=== PATIENT | female | born 1955 | race Caucasian/White ===

== ENCOUNTER 2019-02-23 09:11 | Outpatient (CLI) | payer OTHER, SELFPAY ==
[2019-02-23 09:46] LABS: Abs Immature Grans 0.01 k/cumm (0.0-0.09); Absolute Basophil Count 0.03 k/cumm (0.0-0.2); Absolute Lymphocyte Count 2.43 k/cumm (1.2-3.4); Absolute Monocyte Count 0.56 k/cumm (0.11-0.7); Basophils % 0.4; Eosinophils % 2.8; HCT 40.1 % (36.0-46.0); HGB 13.5 g/dL (12.0-15.5); Immature Grans % 0.1; Lymphocytes % 34.1; Mean Corp. HGB Concentration 33.7 g/dL (32.0-36.0); Mean Corpuscular Volume 86.2 fL (80-95); Mean Platelet Volume 9.8 fL (8.0-11.0); Monocytes % 7.9; Neutrophils % 54.7; Platelet Count 417 x1000/uL (130-400); RBC 4.65 m/cumm (4.00-5.20); RBC Distribution Width 12.8 % (11.7-14.6); White Blood Cell Count 7.13 k/cumm (4.4-10.8)
[2019-02-23 10:39] LABS: TSH (W/Ref FT4) 1.72 uIU/mL (0.358-3.74)
[2019-02-23 13:17] LABS: ALT 28 U/L (12-78); AST 22 U/L (15-37); Albumin 3.8 g/dL (3.4-5.0); Alkaline Phosphatase 127 U/L (46-116); Anion Gap 12.8 mmol/L (3-11); BUN 13 mg/dL (7-18); Bilirubin, Total 0.5 mg/dL (0.2-1.0); CO2 24.2 mmol/L (21.0-32.0); CREATININE 0.83 mg/dL (0.55-1.02); Calcium 8.9 mg/dL (8.5-10.1); Chloride 104 mmol/L (98-107); Glucose 103 mg/dL (70-100); Potassium 4.1 mmol/L (3.5-5.1); Sodium 141 mmol/L (136-145); Total Protein 7.6 g/dL (6.4-8.2)
[2019-02-24 11:09] LABS: Lyme Ab w Rflx to Lyme Confirm Negative
== END 2019-02-23 09:31 ==
PROVIDERS: PCP Nurse Practitioner Family; Referring Provider Nurse Practitioner Family; Visit Provider Nurse Practitioner Family
DX: R06.02 Shortness of breath (principal); R63.0 Anorexia; R53.83 Other fatigue; M79.10 Myalgia, unspecified site; Z87.891 Personal history of nicotine dependence; Z00.00 Encounter for general adult medical examination without abnormal findings
CPT/HCPCS: 36415; 80053; 84443; 85025; 86618

== ENCOUNTER 2019-02-23 13:54 | Outpatient (REF) | payer OTHER, SELFPAY | END 2019-02-23 14:14 | LOC: NCHCN 13:54 | PROVIDERS: PCP Nurse Practitioner Family; Visit Provider Nurse Practitioner Family | DX: R69 Illness, unspecified (principal) ==

== ENCOUNTER 2019-03-22 00:53 | Outpatient (CLI) | payer OTHER, SELFPAY ==
--- NOTE | 2019-03-22 16:03 | DI.MAMMO_ITS ---
SYMPTOM/DIAGNOSIS: PREVENTATIVE CARE 00.00 BREAST CYST BENIGN N60.09 SCREENING Z12.31 BILATERAL SCREENING MAMMOGRAM: Mammograms were interpreted according to the usual protocol including computer analysis with CAD system, tomosynthesis and C view imaging. Comparison is made with exams from 2015 through 2018. The breasts are composed of scattered fibroglandular densities, breast density category B. No suspicious masses or suspicious microcalcifications are seen. There has been no significant change. IMPRESSION: Category 1, negative mammogram. Yearly screening mammography is recommended. Breast density category B MQSA ASSESSMENT OF FINDINGS: Negative. Category 1. Patient will receive a letter notifying them of these results. BI-RADS category B. There are scattered areas of fibroglandular density.
== END 2019-03-22 01:13 ==
PROVIDERS: PCP Nurse Practitioner Family; Visit Provider Nurse Practitioner Family
DX: Z12.31 Encounter for screening mammogram for malignant neoplasm of breast (principal); N60.09 Solitary cyst of unspecified breast; N64.89 Other specified disorders of breast
CPT/HCPCS: 77063; 77067

== ENCOUNTER 2019-07-31 01:54 | Outpatient (CLI) | payer BC, SELFPAY ==
[2019-07-31] MEDS: Inhaler, Assist Device 1 EACH MC (13:57)
[2019-07-31] MEDS: Albuterol HFA 18 GM 200 PUFF INH IH (13:58)
--- NOTE | 2019-08-03 11:03 | PFT_ITS ---
DATE OF SERVICE: JULY 31, 2019 REQUESTING PROVIDER: ANANDA WHITE SPIROMETRY: SHOWS NO EVIDENCE OF OBSTRUCTIVE AIRWAYS DISEASE. NO BRONCHODILATOR RESPONSE. LUNG VOLUMES: SHOW NO EVIDENCE OF RESTRICTION. DIFFUSION CAPACITY: NORMAL. AIRWAYS RESISTANCE: NORMAL. IMPRESSION: NORMAL PULMONARY FUNCTION STUDY. CLINICAL CORRELATION IS RECOMMENDED.
== END 2019-07-31 02:14 ==
PROVIDERS: PCP Nurse Practitioner Family; Visit Provider Nurse Practitioner Family
DX: R06.09 Other forms of dyspnea (principal); Z87.891 Personal history of nicotine dependence; Z77.22 Contact with and (suspected) exposure to environmental tobacco smoke (acute) (chronic)
CPT/HCPCS: 94060; 94150; 94726; 94729

== ENCOUNTER 2020-03-18 02:21 | Outpatient (CLI) | payer BC, SELFPAY ==
[2020-03-18 08:44] LABS: Abs Immature Grans 0.01 k/cumm (0.0-0.09); Absolute Basophil Count 0.03 k/cumm (0.0-0.2); Absolute Eosinophil Count 0.22 k/cumm (0.0-0.7); Absolute Lymphocyte Count 2.34 k/cumm (1.2-3.4); Basophils % 0.5; Eosinophils % 3.4; HCT 40.8 % (36.0-46.0); HGB 13.6 g/dL (12.0-15.5); Immature Grans % 0.2 %; Mean Corp. HGB Concentration 33.3 g/dL (32.0-36.0); Mean Corpuscular Hemoglobin 28.8 pg (27.0-33.0); Mean Corpuscular Volume 86.4 fL (80-95); Mean Platelet Volume 9.9 fL (8.0-11.0); Monocytes % 7.7; Neutrophils % 52.2; Platelet Count 392 x1000/uL (130-400); RBC 4.72 m/cumm (4.00-5.20); RBC Distribution Width 12.7 % (11.7-14.6)
== END 2020-03-18 02:41 ==
LOC: LBO 04-12 15:15 → NCHCO 04-24 15:10
PROVIDERS: PCP Nurse Practitioner Family; Visit Provider Family Medicine
DX: R63.0 Anorexia (principal); R06.02 Shortness of breath; R53.83 Other fatigue; Z91.89 Other specified personal risk factors, not elsewhere classified; M79.10 Myalgia, unspecified site
CPT/HCPCS: 36415; 84443; 85025; 86618

== ENCOUNTER 2020-08-27 01:04 | Outpatient (CLI) | payer BC, SELFPAY ==
--- NOTE | 2020-08-27 | DI.MAMMO_ITS ---
EXAM: MAMMO SCREENING CLINICAL HISTORY: SCREENING, Z00.00,PREVENTATIVE HEALTH CARE TECHNIQUE: Mammograms were interpreted according to the usual protocol including computer analysis w [employer] CAD system, tomosynthesis and C-view imaging. COMPARISON: FINDINGS: The breasts are of moderate density fairly symmetrical distribution fibroglandular tissue. No domina nt mass or clumped microcalcification is identified in either breast. The current examination is com pared with multiple previous studies including February 2019, there is question of increased prominence o f a focal area of asymmetric density projected in the central superior portion of the right breast on MLO view only in comparison with the prior studies. This lies about 6 cm from the nipple. Addition al mammographic views of this area are requested to include an MLO spot compression view of the right breast. No other significant change seen. IMPRESSION: Additional mammographic views of the right breast requested as described above, right breast ultrasou nd recommended as well. BI-RADS Category 0 - Assessment Incomplete: Need additional imaging evaluation Breast Density - Category B - Scattered areas of fibroglandular density
== END 2020-08-27 01:24 ==
PROVIDERS: PCP Nurse Practitioner Family; Visit Provider Family Medicine
DX: Z12.31 Encounter for screening mammogram for malignant neoplasm of breast (principal); R92.8 Other abnormal and inconclusive findings on diagnostic imaging of breast; Z00.00 Encounter for general adult medical examination without abnormal findings
CPT/HCPCS: 77063; 77067

== ENCOUNTER 2020-09-09 01:09 | Outpatient (CLI) | payer BC, SELFPAY ==
--- NOTE | 2020-09-09 | DI.MAMMO_ITS ---
EXAM: MAMMO SCREEN CALL BACK UNI CLINICAL HISTORY: F/U MAMMMO, ?INCREASED ASYMMETRIC DENSITY TECHNIQUE: Spot compression views and tomographic imaging were performed. COMPARISON: 2013 through 27 August 2020 FINDINGS: The breasts are composed of scattered fibroglandular densities, Breast Density category B. No suspicious masses or suspicious microcalcifications are seen. No persistent abnormality is seen on the additional views performed. The findings are consistent wit h overlying fibroglandular tissue. There has been no significant change from prior exams. IMPRESSION: BI-RADS Category 1, Negative Yearly screening mammography is recommended. Please see separate ultrasound report. Breast Density - Category B, scattered fibroglandular densities.
--- NOTE | 2020-09-09 | DI.US_ITS ---
EXAM: US BREAST RT LIMITED CLINICAL HISTORY: F/U MAMMO, ? INCREASED ASYMMETRIC DENSITY. TECHNIQUE: Limited ultrasound of the right breast was performed. COMPARISON: Prior mammograms were reviewed. Today's additional diagnostic mammogram was also reviewe d FINDINGS: The upper half of the breast was scanned. No evidence of solid or significant cystic lesion evident. IMPRESSION: Negative right breast ultrasound. Appropriate follow-up is to keep this patient yearly mammogram schedule, with earlier imaging if a se lf detected breast change is noted.. BI-RADS Category 1 - Negative Breast Density - Category B - Scattered areas of fibroglandular density Breast density Category C or D implies that the patient has dense breast tissue. Dense breast tissue can make it harder to find cancer on a mammogram. Dense breast tissue is also associated with an incr eased risk of breast cancer. This information about the result of the mammogram report was provided to the patient to raise their awareness. Use this report when you speak with the patient about their risks for breast cancer, which includes their family history. At that time, you may recommend additional screening tests (Ultrasoun d or MRI) as these tests may add significant information. A negative radiographic report should not delay biopsy if a dominant or clinically suspicious mass is present. Up to ten percent of cancers are not identified on mammography. A negative report may reinforce clinical impression. Adenosis and dense breasts may obscure an underlying neoplasm. False positive reports average 6 to 10%. Patient will receive a letter notifying them of these results.
== END 2020-09-09 01:29 ==
PROVIDERS: PCP Nurse Practitioner Family; Visit Provider Family Medicine
DX: Z12.31 Encounter for screening mammogram for malignant neoplasm of breast (principal); R92.8 Other abnormal and inconclusive findings on diagnostic imaging of breast; N64.59 Other signs and symptoms in breast
CPT/HCPCS: 76642; 77063; 77067

== ENCOUNTER 2021-03-12 08:19 | Outpatient (REF) | payer BC, SELFPAY ==
[2021-03-12 20:19] LABS: Anion Gap 10.1 mmol/L (3-11); BUN 13 mg/dL (7-18); CO2 24.9 mmol/L (21.0-32.0); CREATININE 0.8 mg/dL (0.55-1.02); Calcium 9.2 mg/dL (8.5-10.1); Chloride 105 mmol/L (98-107); Glucose 94 mg/dL (74-106); Potassium 4.7 mmol/L (3.5-5.1); Sodium 140 mmol/L (136-145)
[2021-03-12 21:17] LABS: Calculated LDL 150 mg/dL (<100); Cholesterol 251 mg/dL (<200); HDL Cholesterol 53 mg/dL (40-60); Triglyceride 243 mg/dL (<150); Vitamin B12 539 pg/mL (193-986)
== END 2021-03-12 08:20 | disposition home or self-care (01) ==
LOC: NCHCN 08:19
PROVIDERS: PCP Nurse Practitioner Family; Visit Provider Family Medicine
DX: Z00.00 Encounter for general adult medical examination without abnormal findings (principal); I10 Essential (primary) hypertension; Z13.220 Encounter for screening for lipoid disorders; Z13.1 Encounter for screening for diabetes mellitus
CPT/HCPCS: 80048; 80061; 82607; 83036

== ENCOUNTER 2022-04-21 16:42 | Outpatient (REF) | payer MEDICAID, SELFPAY ==
[2022-04-21 18:51] LABS: ESR 28 mm/hr (0-30)
[2022-04-21 19:28] LABS: Anion Gap 8.9 mmol/L (3-11); BUN 18 mg/dL (7-18); CO2 26.1 mmol/L (21.0-32.0); Calcium 8.6 mg/dL (8.5-10.1); Chloride 107 mmol/L (98-107); Estimated GFR 55.82 (mL/min/1.73m2); Glucose 152 mg/dL (74-106); Potassium 3.9 mmol/L (3.5-5.1); Sodium 142 mmol/L (136-145); TSH (W/Ref FT4) 1.18 uIU/mL (0.36-3.74)
== END 2022-04-21 16:43 | disposition home or self-care (01) ==
LOC: NCHCN 16:42
PROVIDERS: PCP Nurse Practitioner Family; Visit Provider Family Medicine
DX: M79.10 Myalgia, unspecified site (principal); I10 Essential (primary) hypertension; R06.09 Other forms of dyspnea
CPT/HCPCS: 80048; 85652; 84443

== ENCOUNTER → 2022-05-06 02:41 | Outpatient (CLI) | payer MEDICAID, SELFPAY ==
--- NOTE | 2022-05-06 12:52 | DI.MAMMO_ITS ---
Exam(s) MAMMO SCREENING EXAM: MAMMO SCREENING CLINICAL HISTORY: SCREENING MAMMO Z12.39 TECHNIQUE: Bilateral full field digital CC and MLO mammographic images were obtained with 3D tomosyn thesis and utilizing computer aided detection (CAD). COMPARISON: Available for comparison. FINDINGS: Masses/Architectural Distortion: There is a new 9 mm nodule in the upper inner quadrant of the left b reast. Microcalcifications: No suspicious pleomorphic-type are seen. Skin Thickening/Nipple Retraction: None. IMPRESSION: 1. New 9 mm nodule in the upper inner quadrant of the left breast. 2. Further evaluation with spot compression view and are left breast ultrasound is recommended. BI-RADS Category 0 - Assessment Incomplete: Need additional imaging evaluation Breast Density - Category B - Scattered areas of fibroglandular density Breast density category C or D implies that the patient has dense breast tissue. Dense breast tissue is very common and is not abnormal but dense breast tissue can make it harder to find cancer on a ma mmogram. Also, dense breast tissue may increase their breast cancer risk. This information about the result of the mammogram report was provided to the patient to raise their awareness. Use this report when you speak with the patient about their risks for breast cancer, which includes their family hist ory. At that time, you may recommend for more screening tests (Ultrasound or MRI) as they might be us eful based on their risk. A negative radiographic report should not delay biopsy if a dominant or clinically suspicious mass is present. Up to ten percent of cancers are not identified on mammography. A negative report may reinforce clinical impression. Adenosis and dense breasts may obscure an underlying neoplasm. False positive reports average 6 to 10%. Patient will receive a letter notifying them of these results.
--- NOTE | 2022-05-06 12:54 | DI.RAD_ITS ---
Exam(s) XR CHEST 2V PA LATERAL EXAM: XR CHEST 2V PA LATERAL CLINICAL HISTORY: SOB R06.09 FARFAN COUGH BROTHER WITH SARCOIDOSIS TECHNIQUE: 2D digital imaging was performed of the chest. Two images were obtained. PA and lateral views were obtained. COMPARISON: No exams were available for comparison FINDINGS: MEDIASTINUM: Normal. HEART: Normal. PULMONARY VASCULATURE: Normal. LUNGS: Clear. PLEURAL SPACE: No pleural effusion or pneumothorax. BONE:Within normal limits for the patient's age. OTHER FINDINGS:Normal. IMPRESSION: No acute pulmonary findings. DATA REPOSITORY: RADIATION DOSE DELIVERED:
--- NOTE | 2022-05-06 12:54 | DI.RAD_ITS ---
Exam(s) XR HIP LT COMPLETE AP PELVIS EXAM: XR HIP LT COMPLETE AP PELVIS CLINICAL HISTORY: LEFT HIP PAIN M25.552 LIMITED INT/EXT ROTATION. TECHNIQUE: 2D digital imaging was performed of the left hip. Three views were obtained. AP pelvis and lateral left hip views were obtained. COMPARISON: No exams were available for comparison FINDINGS: BONES: No acute fracture is present. No bony destructive lesion is seen. JOINTS: No dislocation present. There are marked degenerative changes of the left hip with joint spac e narrowing, subchondral sclerosis and cysts and mild periarticular spurring. Moderate degenerative changes are seen in the right hip with joint space narrowing and periarticular spurring. SOFT TISSUE: Normal. IMPRESSION: Marked osteoarthritis of the left hip. DATA REPOSITORY: RADIATION DOSE DELIVERED:
== END ==
PROVIDERS: PCP Nurse Practitioner Family; Visit Provider Family Medicine
DX: R06.09 Other forms of dyspnea (principal); M25.552 Pain in left hip; Z12.31 Encounter for screening mammogram for malignant neoplasm of breast; R92.8 Other abnormal and inconclusive findings on diagnostic imaging of breast; R06.02 Shortness of breath; M16.12 Unilateral primary osteoarthritis, left hip
CPT/HCPCS: 77063; 77067; 71046; 73502

== ENCOUNTER → 2022-05-11 01:36 | Outpatient (CLI) | payer MEDICAID, SELFPAY ==
--- NOTE | 2022-05-11 | DI.MAMMO_ITS ---
Exam(s) MG MAMMO SCREEN CALL BACK UNI US BREAST LT COMPLETE EXAM: MG MAMMO SCREEN CALL BACK UNI -LEFT AND COMPLETE LEFT BREAST ULTRASOUND CLINICAL HISTORY: F/U MAMMO, NEW 9 MM NODULE UPPER INNER QUADRANT LT BREAST. TECHNIQUE: Unilateral spot mammographic images obtained with 3D tomosynthesisand utilizing computer aided detection (CAD). . Complete LEFT breast Ultrasound was also performed, including all 4 quadrants, the retroareolar regio n, and the ipsilateral axilla. COMPARISON: Prior mammograms were reviewed. This additional imaging was performed due to findings described on the recent screening mammogram of 05/06/2022. FINDINGS: DIAGNOSTIC LEFT BREAST MAMMOGRAM: Additional mammographic views performed todaydoes not dissipate this nodule. We therefore proceeded with ultrasound. COMPLETE LEFT BREAST ULTRASOUND: Ultrasound performed today reveals a 3-4 millimeter microcyst at the 3 o'clock position. At the 9-10 o'clock position there is a 5 x 3 millimeter microcyst. This most probably corresponds t o the finding on the mammogram.. There are no other focal ultrasound findings in all 4 quadrants. N o solid lesions evident. Scanning of the left axilla is negative for adenopathy IMPRESSION: Benign-appearing findings. The nodule seen on the mammogram appears to correspond to a [address] microcyst on ultrasound (9-10 o'clock position). Appropriate follow-up as discussed by myself with the patient today is repeat left breast imaging in 6 months to ensure stability.. The patient was informed of these findings and recommendations by myself prior to leaving the [facility] ent today. BI-RADS Category 3 - 6 month - Probably Benign Finding: Recommend follow-up mammography in 6 months Breast Density - Category B - Scattered areas of fibroglandular density Breast density Category C or D implies that the patient has dense breast tissue. Dense breast tissue can make it harder to find cancer on a mammogram. Dense breast tissue is also associated with an incr eased risk of breast cancer. This information about the result of the mammogram report was provided to the patient to raise their awareness. Use this report when you speak with the patient about their risks for breast cancer, which includes their family history. At that time, you may recommend additional screening tests (Ultrasoun d or MRI) as these tests may add significant information. A negative radiographic report should not delay biopsy if a dominant or clinically suspicious mass is present. Up to ten percent of cancers are not identified on mammography. A negative report may reinforce clinical impression. Adenosis and dense breasts may obscure an underlying neoplasm. False positive reports average 6 to 10%. Patient will receive a letter notifying them of these results.
== END ==
PROVIDERS: PCP Nurse Practitioner Family; Visit Provider Family Medicine
DX: Z12.31 Encounter for screening mammogram for malignant neoplasm of breast (principal); R92.8 Other abnormal and inconclusive findings on diagnostic imaging of breast; N60.12 Diffuse cystic mastopathy of left breast
CPT/HCPCS: 76642; 77063; 77067

== ENCOUNTER → 2022-05-21 02:20 | Outpatient (CLI) | payer MEDICAID, SELFPAY ==
--- NOTE | 2022-05-21 09:00 | ETT_ITS ---
APPROVED REPORT Exam: Exercise Treadmill Patient Location: Out-Patient Room/Bed: Stress Nurse: Fallon Paige RN Ordering Provider:OBEY TIERNEY, Contact Number: [phone] BMI: 29.75 Baseline Rhythm: Sinus Rhythm Comment: Flattened T-waves in V1 Indications: Exertional shortness of breath. Medical History Medical History: HTN. HLD. GERD. Elevated BMI. Allergic rhinitis. Recurrent UTI. Cardiac Medications: Losartan Allergies: Meperidine Cardiac Risk Factors: HTN. HLD. Former smoker. Obesity. Previous Cardiac Procedures: None Pretest Chest Pain Characteristics: None. Exercise History: Sedentary Physical Disabilities: Hips Lung Sounds: Clear to auscultation Heart Sounds: Regular Stress Test Details Test: Exercise stress testing was performed using a Man protocol. Rest Stress HR Resting HR Supine: 64 bpm Max Heart Rate (APMHR): 156 bpm Resting HR Standin bpm Target HR (85% APMHR): 132 bpm Max HR Achieved: 160 bpm % of APMHR: 102 Recovery HR: 88 bpm HR response to stress: Normal HR response to stress BP Resting BP Supine: 178/84 mmHg Resting BP Standin/78 mmHg Max BP: 190/68 mmHg Recovery BP: 140/78 mmHg BP response to stress: Normal blood pressure response to stress. Comment: Pt took her Losartan this am. ECG Resting ECG: Sinus Rhythm Ectopy: None Stress ECG: Sinus Tachycardia ST Change: No significant ST segment changes noted Arrhythmia: VPC's Recovery ECG: Sinus Rhythm Recovery ST Change: No significant ST segment changes noted Recovery Arrhythmia: None Clinical Reason for Termination: Fatigue, Dyspnea Stress Symptoms: Dyspnea, General Fatigue, arm fatigue Exercise duration: 7 min5 sec Highest Stage Reached: Stage 3: 3.4 mph at 14% grade. Exercise capacity: 8.72 METs Scale: Sedentary Angina Score: 64 Rate Pressure Product: [id number] Stress ECG Conclusion 1. Resting electrocardiogram showed poor R wave progression 2. Patient exercised on the Man protocol and completed a workload of 8.72 METS, limited by fatigue and shortness of breath 3. Normal heart rate and blood pressure response to exercise. The patient achieved greater than 100% of predicted heart rate for age 4. There was no electrocardiographic evidence of myocardial ischemia 5. Isolated PVCs were seen Stress Test Summary STAGE Time (mins) Speed (mph) Grade (%) HR BP SpO2 SYMPTOMS METS Supine 64 178/84 97 Standing 74 162/78 1 3 1.7 10 135 170/80 4.5 2 6 2.5 12 145 184/78 7 1 min recovery 125 190/68 96 3 min recovery 92 170/88 6 min recovery 88 140/78
== END ==
PROVIDERS: PCP Family Medicine; Visit Provider Family Medicine
DX: R06.02 Shortness of breath (principal)
CPT/HCPCS: 93017

== ENCOUNTER 2022-06-09 15:43 | Outpatient (REF) | payer MEDICAID, SELFPAY ==
[2022-06-09 15:02] LABS: Calculated LDL 122 mg/dL (<100); Cholesterol 202 mg/dL (<200); HDL Cholesterol 61 mg/dL (40-60); Triglyceride 95 mg/dL (<150)
== END 2022-06-09 15:44 | disposition home or self-care (01) ==
LOC: NCHCN 15:43
PROVIDERS: PCP Family Medicine; Visit Provider Family Medicine
DX: E78.5 Hyperlipidemia, unspecified (principal)
CPT/HCPCS: 80061

== ENCOUNTER 2022-06-25 04:06 | Outpatient (CLI) | payer MEDICAID, SELFPAY ==
[2022-06-25] MEDS: Albuterol HFA 18 GM 200 PUFF INH IH (14:12)
[2022-06-25] MEDS: Inhaler, Assist Device 1 EACH MC (14:12)
--- NOTE | 2022-06-26 16:59 | W.PFT ---
Date of service: 06/25/22 Time of Service: 13:03 Pulmonary Function Test Result Requesting Provider Michele Royal Indications: FARFAN Interpretation Spirometry: There is no airflow limitation. There is no bronchodilator response. Lung Volumes: Normal lung volumes. Diffusion Capacity: Normal diffusion Airway Pressure: Normal airways resistance. Impression Normal pulmonary function testing Note: When compared to 07/31/19, there has been a decreased in FVC, TLC and diffusion that is unexplained by aging alone. Clinical Correlation therefore is recommended.
== END 2022-06-25 04:07 | disposition home or self-care (01) ==
LOC: RT 04:06
PROVIDERS: PCP Family Medicine; Visit Provider Family Medicine
DX: R06.02 Shortness of breath (principal); R06.09 Other forms of dyspnea
CPT/HCPCS: 94060; 94726; 94729

== ENCOUNTER 2022-09-03 01:15 | Outpatient (CLI) | payer MEDICARE, MEDICAID, SELFPAY ==
--- NOTE | 2022-09-03 15:08 | DI.RAD_ITS ---
Exam(s) RF JOINT INJECTION FLUORO GUID EXAM: RF JOINT INJECTION FLUORO GUID CLINICAL HISTORY: L HIP INJ UNDER FLUORO,OA LT HIP, M16.12,PAIN TECHNIQUE: Fluoroscopy provided. Radiologist not present. CONTRAST MATERIAL: None COMPARISON: No exams were available for comparison FINDINGS: Fluoroscopy was provided for Dr. Trinh during left hip injection.. Please refer to the procedure report for complete details. Cumulative Dose: Ka,r=0.667 mGy IMPRESSION: RADIATION DOSE DELIVERED:
[2022-09-03] MEDS: Omnipaque 300 MG/ML 10 ML BTL IJ (15:18)
[2022-09-03] MEDS: methylPREDNISolone ACETATE 80 MG/ML VIAL IM (15:19)
[2022-09-03] MEDS: Bupivacaine 0.5% Pres-Free 10 ML VIAL 5 ML IJ (15:19)
--- NOTE | 2022-09-04 13:45 | W.PROCNOTE ---
Date of service: 09/03/22 Time of Service: 13:50 Procedure Note Date of procedure: 09/03/22 Procedure: Left Hip Injection with Fluoroscopic Guidance Surgeon/Proceduralist/Physician: Miguel Trinh Procedure Diagnosis: Left Hip Osteoarthritis Procedure Indications: Clare has had persistent pain of the LEFT hip and groin. Noninvasive measures have been tried. To serve as both diagnostic and therapeutic, an injection under fluoroscopy was recommended. I had discussed the risks of the procedure and the patient elected to proceed. Procedure Description: Clare was greeted in the flouroscopy room. The correct side was identified and the consent was reviewed with the patient and signed. The patient was then placed in the supine position on the fluoroscopy table. The LEFT hip was then prepped with Chloraprep. The anterolateral injection starting point was identiifed by bony landmarks and fluoroscopy. The skin and soft tissue in the tract of the injection was anesthetized with 1% Lidocaine. A spinal needle was then inserted deep into the hip joint at the level of the lateral femoral neck under fluoroscopic guidance. A small amount of Omnipaque solution was injected to confirm intraarticular placement. Once confirmed, the hip was injected with 5cc of 0.5% Bupivicaine and 80mg of Depo-Medrol. A bandaid was placed on the injection site. The patient tolerated the procedure well and noted improvement in pre-injection pain.
== END 2022-09-03 01:35 ==
PROVIDERS: PCP Family Medicine; Visit Provider Student in an Organized Health Care Education/Training Program
DX: M16.12 Unilateral primary osteoarthritis, left hip (principal); M25.552 Pain in left hip
CPT/HCPCS: 20610; 20611; 77002; J1040

== ENCOUNTER 2022-10-21 17:47 | Outpatient (REF) | payer MEDICARE, MEDICAID, SELFPAY ==
--- NOTE | 2022-10-21 16:00 | PAPFT_PTH ---
PATIENT: Chichi Bravo LOC: [facility] U#:[id number] AGE/SX: 67/F ROOM: RE10/21/[address]: Sumi Caal MD : [id number] BED: DIS: 10/21/2022 SPEC #: [id number] RECD: 10/21/22 18:24 STATUS: CHAVO REQ #: [id number] STEVEN: 10/21/22 16:[address]: Sumi Caal DEPT: [facility] Cytology RECD BY: Maria R Goldberg ENTERED: 10/21/22 18:24 SP TYPE: PAPFT OTHR DR: Michele Royal Tissues: 1 - CX/ENDOCX FOR PAP SMEARS Procedures: PAP THIN PREP/U[facility] Screening HPV DNA PROBE Comments: [id number] (HPV 16 & 18/45)
== END 2022-10-21 17:48 | disposition home or self-care (01) ==
LOC: LBN 17:47
PROVIDERS: PCP Family Medicine; Visit Provider Obstetrics & Gynecology
DX: Z01.411 Encounter for gynecological examination (general) (routine) with abnormal findings (principal); Z11.51 Encounter for screening for human papillomavirus (HPV); R87.810 Cervical high risk human papillomavirus (HPV) DNA test positive
CPT/HCPCS: 88142; 87624

== ENCOUNTER 2022-12-31 00:47 | Outpatient (CLI) | payer MEDICARE, MEDICAID, SELFPAY ==
--- NOTE | 2022-12-31 14:40 | DI.RAD_ITS ---
Exam(s) RF JOINT INJECTION FLUORO GUID EXAM: RF JOINT INJECTION FLUORO GUID CLINICAL HISTORY: LEFT HIP PAIN,INJ UNDER FLUORO,DJD,M16.12 TECHNIQUE: 2D and realtime digital imaging was performed. CONTRAST MATERIAL: Refer to procedure report. COMPARISON: No exams were available for comparison FINDINGS: Fluoroscopy was provided for Dr. Trinh during the performance of a left hip injection. Please re solis to the procedure report for complete details. Ka,r=0.22 mGy IMPRESSION: RADIATION DOSE DELIVERED:
--- NOTE | 2022-12-31 14:53 | W.PROCNOTE ---
Date of service: 12/31/22 Time of Service: 14:30 Procedure Note Date of procedure: 12/31/22 Procedure: Left Hip Injection with Fluoroscopic Guidance Surgeon/Proceduralist/Physician: Miguel Trinh Procedure Diagnosis: Left Hip Osteoarthritis Procedure Indications: Clare has had persistent pain of the LEFT hip and groin. She has had previous injection wtih good relief of symptoms. Given the pain and dysfunction, injection under fluoroscopy was recommended. I had discussed the risks of the procedure and the patient elected to proceed. Procedure Description: Clare was greeted in the flouroscopy room. The correct side was identified and the consent was reviewed with the patient and signed. The patient was then placed in the supine position on the fluoroscopy table. The LEFT hip was then prepped with Chloraprep. The anterolateral injection starting point was identiifed by bony landmarks and fluoroscopy. The skin and soft tissue in the tract of the injection was anesthetized with 1% Lidocaine. A spinal needle was then inserted deep into the hip joint at the level of the lateral femoral neck under fluoroscopic guidance. A small amount of Omnipaque solution was injected to confirm intraarticular placement. Once confirmed, the hip was injected with 5cc of 0.5% Bupivicaine and 80mg of Depo-Medrol. A bandaid was placed on the injection site. The patient tolerated the procedure well and noted improvement in pre-injection pain.
[2022-12-31] MEDS: methylPREDNISolone ACETATE 80 MG/ML VIAL IM (15:22)
[2022-12-31] MEDS: Bupivacaine 0.5% Pres-Free 10 ML VIAL 5 ML IJ (15:23)
[2022-12-31] MEDS: Omnipaque 300 MG/ML 10 ML BTL IJ (15:24)
== END 2022-12-31 01:07 ==
LOC: DI 00:47
PROVIDERS: PCP Family Medicine; Visit Provider Student in an Organized Health Care Education/Training Program
DX: M16.12 Unilateral primary osteoarthritis, left hip (principal)
CPT/HCPCS: 20610; 77002; J1040

== ENCOUNTER 2023-02-04 01:37 | Outpatient (CLI) | payer MEDICARE, MEDICAID, SELFPAY ==
--- NOTE | 2023-02-04 | DI.DEXA_ITS ---
Exam(s) XR DEXA BONE DENSITY W/WO LAMIN EXAM: XR DEXA BONE DENSITY W/WO LAMIN CLINICAL HISTORY: POSTMENOPAUSAL Z78.0 SCREENING FOR OSTEOPOROSIS TECHNIQUE: COMPARISON: No exams were available for comparison FINDINGS: Lateral Spine Image: Unremarkable. No compression deformities identified. Left hip: Total T-Score: -2.1 Total Z-Score: -0.9 T- and Z-scores: Findings are consistent with osteopenia. Lumbar Spine: Total T-Score: -2.3 Total Z-Score: -0.6 T- and Z-scores: Findings are consistent with osteopenia. There is osteoporosis in the L3 vertebral body with a T-score -2.5. IMPRESSION: Osteoporosis in the lumbar spine.
== END 2023-02-04 01:57 ==
LOC: DI 01:39
PROVIDERS: PCP Family Medicine; Visit Provider Family Medicine
DX: Z78.0 Asymptomatic menopausal state (principal); Z13.820 Encounter for screening for osteoporosis; M81.0 Age-related osteoporosis without current pathological fracture
CPT/HCPCS: 77080

== ENCOUNTER 2023-05-12 18:33 | Outpatient (REF) | payer MEDICARE, MEDICAID, SELFPAY ==
[2023-05-12 19:26] LABS: BUN 19 mg/dL (7-18); CREATININE 0.9 mg/dL (0.55-1.02); Calcium 9.1 mg/dL (8.5-10.1); Chloride 105 mmol/L (98-107); Estimated GFR 70.95 (mL/min/1.73m2); Glucose 114 mg/dL (74-106); Potassium 3.9 mmol/L (3.5-5.1); Sodium 139 mmol/L (136-145)
[2023-05-12 20:03] LABS: Hemoglobin A1C 5.8 % (<5.7)
== END 2023-05-12 18:34 | disposition home or self-care (01) ==
LOC: NCHCN 18:33
PROVIDERS: PCP Family Medicine; Visit Provider Family Medicine
DX: R73.03 Prediabetes (principal); I10 Essential (primary) hypertension
CPT/HCPCS: 80048; 83036

== ENCOUNTER → 2023-05-17 02:16 | Outpatient (CLI) | payer MEDICARE, MEDICAID, SELFPAY ==
--- NOTE | 2023-05-17 | DI.MAMMO_ITS ---
Exam(s) MAMMO SCREENING EXAM: MAMMO SCREENING CLINICAL HISTORY: SCREENING EXAM FOR BREAST CANCER Z12.39 BENIGN BREAST CYST N60.09 TECHNIQUE: Mammograms were interpreted according to the usual protocol including computer analysis w [employer] CAD system, tomosynthesis and C-view imaging. COMPARISON: 2013 through 2021 FINDINGS: The breasts are composed of scattered fibroglandular densities, Breast Density category B. No suspicious masses or suspicious microcalcifications are seen. Stable area nodularity in the poste romedial left breast. No skin thickening or abnormal axillary lymph nodes are seen. There has been no significant change from prior exams. IMPRESSION: BI-RADS Cat 2 - Benign Findings. Yearly screening mammography is recommended. Breast Density - Category B, scattered fibroglandular densities. A negative radiographic report should not delay biopsy if a dominant or clinically suspicious mass is present. Up to ten percent of cancers are not identified on mammography. A negative report may reinforce clinical impression. Adenosis and dense breasts may obscure an underlying neoplasm. False positive reports average 6 to 10%. Patient will receive a letter notifying them of these results.
== END ==
PROVIDERS: PCP Family Medicine; Visit Provider Family Medicine
DX: Z12.31 Encounter for screening mammogram for malignant neoplasm of breast (principal); N60.09 Solitary cyst of unspecified breast
CPT/HCPCS: 77063; 77067

== ENCOUNTER 2023-07-19 14:45 | Outpatient (CLI) | payer MEDICARE, MEDICAID, SELFPAY ==
--- NOTE | 2023-07-19 15:00 | DI.RAD_ITS ---
Exam(s) XR PELVIS AP EXAM: XR PELVIS AP CLINICAL HISTORY: BILATERAL HIP PAIN. TECHNIQUE: 2D digital imaging was performed. Single AP view. COMPARISON: CR XR HIP LT COMPLETE AP PELVIS from 05/06/2022 FINDINGS: BONES: No acute fracture is present. No bony destructive lesion is seen. JOINTS: No dislocation present. Severe narrowing of the left hip joint space a [id number] appearanc e. Some flattening of the femoral head. Periarticular spurring and sclerosis. Subchondral cysts. Further worsening from prior. The right hip shows mild degenerative changes. SOFT TISSUE: Normal. IMPRESSION: Severe degenerative changes of the left hip. DATA REPOSITORY: RADIATION DOSE DELIVERED:
== END 2023-07-19 14:46 | disposition home or self-care (01) ==
LOC: DIORS 07-20 08:42
PROVIDERS: PCP Family Medicine; Referring Provider Family Medicine; Visit Provider Student in an Organized Health Care Education/Training Program
DX: M16.12 Unilateral primary osteoarthritis, left hip
CPT/HCPCS: 99213; 72170

== ENCOUNTER → 2023-07-26 18:44 | Outpatient (CLI) | payer MEDICARE, SELFPAY ==
--- NOTE | 2023-07-26 15:00 | DI.US_ITS ---
APPROVED REPORT EXAM: Comprehensive 2D, Doppler, and color-flow Echocardiogram Patient Location: Out-Patient Decorating Consultant: Yulia Cortes RDCS (AE) Indications: Abnormal EKG, Former smoker, HTN, Pre operative exam Other Information Study Quality: Adequate. Technically limited study due to body habitus. Conclusion The left ventricular wall thickness and chamber size. Calculated ejection fraction is 58%, visually appears 60 to 65%. There are no segmental wall motion abnormalities. Diastolic function is normal Normal right ventricular size and systolic function Atria are normal in size There is no structural or hemodynamically significant valvular disease Incidental finding of a liver cyst Wall motion Left Ventricle The left ventricle is normal size. The left ventricular systolic function is normal. The left ventric ular ejection fraction is within the normal range. There is normal left ventricular wall thickness. T here is normal LV segmental wall motion. There is no ventricular septal defect visualized. LVEF is 58 %. Right Ventricle The right ventricle is normal size. The right ventricular systolic function is normal. Atria The left atrium size is normal. The right atrium size is normal. The interatrial septum is intact wit h no evidence for an atrial septal defect. Aortic Valve The aortic valve is normal in structure. Aortic valve is trileaflet. There is no aortic valvular sten osis. No aortic regurgitation is present. Mitral Valve The mitral valve is normal in structure. No evidence of mitral valve stenosis. Trace mitral regurgita tion. Tricuspid Valve The tricuspid valve is normal in structure. There is no tricuspid valve stenosis. Trace tricuspid reg urgitation. Unable to assess PA pressure. Pulmonic Valve Pulmonic valve is not well visualized. There is no pulmonic valvular stenosis. Great Vessels The aortic root is normal in size. The ascending aorta is normal in size. Aortic arch is normal in ca liber. IVC is normal in size and collapses >50% with inspiration. Pericardium There is no pericardial effusion. 2D Dimensions IVSD d PLAX 0.81 cm F: 0.6-1.0 Ao Root d 3.31 cm F: 2.7 - 3.3 LVPW d PLAX 0.83 cm F: 0.6 - 1.0 Ao Asc Diam d 2.72 cm F: 2.3 - 3.1 LVID d PLAX 4.49 cm F: 3.8 - 5.2 LVDs 3.08 cm F: 2.2 - 3.5 LV EF Teichholz 59.4 % FS 31.37 % LV EDV (Teich) 92.0 mL LV ESV (Teich) 37.4 mL M-Mode TAPSE 3.09 cm (M/F) >1.7 Auto EF LV EDV A4C 85.4 mL LV EDV A2C 100.9 mL LV EDV BP 92.7 mL LV ESV A4C 37.4 mL LV ESV A2C 39.8 mL LV ESV BP 38.9 mL LVEF(%) A4C 56.1 % LVEF(%) A2C 60.5 % LVEF(%) BP 58.0 % LV SV A4C 47.9 ml LV SV A2C 61.1 ml LV SV BP 53.8 ml LV CO A4C 4.3 L/min LV CO A2C 5.4 L/min LV CO BP 4.8 L/min HR A4C 89.56 BPM HR A2C 88.24 BPM LV EDV Index (BP) LV Strain Long Pk Overal Avg (s) 17.95 LA Volume LA Length A4C 4.9 cm LA Length A2C 4.8 cm LA Area A4C s 18.27 cm2 LA Area A2C s 16.00 cm2 LA Vol A4C A-L 58.23 mL LA Vol A2C A-L 45.65 mL LA Vol Biplane A-L 52.1 mL LA Vol/BSA A4C A-L LA Vol/BSA A2C A-L LA Vol/BSA BP A-L 30.1 mL/m2 LA Vol A4C MOD 53.6 mL LA Vol A2C MOD 43.3 mL LA Vol BP MOD 48.4 mL LV Diastology MV E' medial 0.116 (>0.07 m/s) MV E Vmax 0.94 (0.4-1.3 m/s) MV E/E' MED 8.09 (<14) MV A Vmax 0.90 (0.4-1.3 m/s) E/A Ratio 1.0 Aortic Valve AoV Vmax 1.41 m/s LVOT Vmax 1.12 m/s AoV Peak Grad 7.9 mmHg LVOT Peak Grad 5.0 mmHg AoV Area (Vmax) 2.50 cm2 LVOT VTI 0.241 m AoV VTI 0.320 m LVOT Mean Grad 2.8 mmHg AoV Mean Tahir. 0.99 m/s LVOT SV 75.77 mL AoV Mean Grad 4.4 mmHg LVOT Diam s 1.95 cm AoV Area (VTI) 2.37 cm2 Velocity Ratio 0.79 Mitral Valve MV DT 168 (160-240 msec) MV Vmax TIPS 0.94 m/s MV Mean Grad 1.8 (<2mmHg) MV VTI 0.248 m Pulmonary Valve PV Vmax 0.72 (0.5-1.5 m/s) RVOT Vmax 0.63 m/s PV Peak Grad 2.1 mmHg RVOT Peak Gr. 1.6 mmHg PV Mean Tahir 0.54 m/s RVOT VTI 0.129 m PV Mean Grad 1.3 mmHg RVOT Mean Gr. 0.7 mmHg Tricuspid Valve RA Pressure 3.00 mmHg TV S' 0.16 m/s
== END ==
PROVIDERS: PCP Family Medicine; Visit Provider Family Medicine
DX: R94.31 Abnormal electrocardiogram [ECG] [EKG] (principal)
CPT/HCPCS: 93306

== ENCOUNTER 2023-07-26 18:48 | Outpatient (CLI) | payer MEDICARE, SELFPAY ==
[2023-07-26 16:05] LABS: HCT 39.5 % (36.0-46.0); HGB 12.7 g/dL (11.2-15.7); MCH 27.4 pg (27.0-33.0); MCHC 32.2 % (32.0-36.0); MCV 85 fL (80-95); MPV 9.6 fL (8.0-11.0); Platelet Count 350 10^3/uL (130-400); RBC 4.63 10^6/uL (3.93-5.22); RDW 12.8 % (11.7-14.6); RDW-SD 39.8 fL; WBC 8.58 10^3/uL (4.4-10.8)
[2023-07-26 16:33] LABS: Anion Gap 9.3 mmol/L (3-11); BUN 14 mg/dL (7-18); CO2 27.7 mmol/L (21.0-32.0); CREATININE 0.9 mg/dL (0.55-1.02); Calcium 8.7 mg/dL (8.5-10.1); Chloride 105 mmol/L (98-107); Estimated GFR 70.95 (mL/min/1.73m2); Glucose 113 mg/dL (74-106); Potassium 3.6 mmol/L (3.5-5.1); Sodium 142 mmol/L (136-145)
== END 2023-07-26 18:49 | disposition home or self-care (01) ==
LOC: LBO 18:49
PROVIDERS: PCP Family Medicine; Visit Provider Student in an Organized Health Care Education/Training Program
DX: M16.12 Unilateral primary osteoarthritis, left hip (principal); Z01.818 Encounter for other preprocedural examination
CPT/HCPCS: 36415; 80048; 85027

== ENCOUNTER 2023-08-18 06:03 | Day surgery (SDC) | payer MEDICARE, SELFPAY ==
[2023-08-18] VITALS (10 sets, daily range): BP systolic 113–177; BP diastolic 57–88; PULSE 78–108; RESP 13–16; TEMP 36.5–36.9; O2SAT 93–99; BMI 30.3
[2023-08-18] MEDS: Celecoxib 200 MG CAP 400 MG PO (06:54)
[2023-08-18] MEDS: Acetaminophen 500 MG TAB 1000 MG PO (06:54)
[2023-08-18] MEDS: Lactated Ringers 1,000 ML 80 ML IV (06:54)
--- NOTE | 2023-08-18 06:54 | W.ANESPRE ---
General Info Date of Service Date Performed: 08/18/23 Height: 5 ft 3.5 in Weight: 79 kg Body Mass Index (BMI): 30.3 Surgical Procedure: Operation Date: 08/18/23 07:50 Proposed Procedure Side Surgeon p Hip Total Hip Anterior, ACTIS Left Miguel Trinh MD Meds Allergies and Home Medications Allergies Allergy/AdvReac Type Severity Reaction Status Date / Time meperidine HCl [From Demerol] AdvReac Intermediate NAUSEA Unverified 08/17/23 12:04 Home Medication Medication Instructions Recorded Multi For Her 50 Plus Softgel 400 mcg PO DAILY 07/25/13 albuterol sulfate 90 mcg/actuation 2 puff inhalation Q6H PRN 06/14/22 aerosol inhaler budesonide-formoterol HFA 160 2 puff inhalation BID PRN 06/14/22 mcg-4.5 mcg/actuation aerosol inhaler (Symbicort) cetirizine 10 mg tablet 10 mg PO DAILY PRN 06/14/22 citalopram 10 mg tablet (Celexa) 20 mg PO DAILY 06/14/22 esomeprazole magnesium 40 mg 40 mg PO DAILY 06/14/22 capsule,delayed release losartan 50 mg tablet 50 mg PO DAILY 06/14/22 estradiol 0.01% (0.1 mg/gram) 0.5 g vaginal DAILY #42.5 grams 11/16/22 vaginal cream acetaminophen 500 mg tablet 1,000 mg (2 x 500 mg) PO TID #90 08/18/23 tabs aspirin 81 mg tablet,delayed 81 mg PO BID #60 tabs 08/18/23 release celecoxib 200 mg capsule 200 mg PO BID #60 caps 08/18/23 dexamethasone 4 mg tablet 4 mg PO DAILY #2 tabs 08/18/23 oxycodone 5 mg tablet 5 mg PO Q4H PRN pain #20 tabs 08/18/23 Current Visit Medications: Current Medications Generic Name Dose Route Start Last Admin Trade Name Freq PRN Reason Stop Dose Admin Acetaminophen 1,000 mg 08/18/23 06:00 Acetaminophen 500 Mg Tab PO 08/18/23 18:00 PREOP CECILIA Celecoxib 400 mg 08/18/23 06:00 Celecoxib 200 Mg Cap PO 08/18/23 18:00 PREOP CECILIA Tranexamic Acid 1,000 mg/ 60 mls @ 360 mls/hr 08/18/23 06:00 Sodium Chloride IV 08/18/23 18:00 PREOP CECILIA Ringer's Solution 1,000 mls @ 80 mls/hr 08/18/23 06:00 IV 08/18/23 23:59 INFUSION CECILIA Cefazolin Sodium/Dextrose 2 gm in 50 mls @ 100 mls/hr 08/18/23 06:00 Ancef Duplex IVPB 08/18/23 23:59 PREOP CECILIA IV Miscellaneous Supplies 1 each 08/18/23 06:00 Iv Access IV 08/18/23 23:59 DIRECTED CECILIA Sodium Chloride 0 ml 08/18/23 06:00 Normal Saline Flush 10 Ml Syr IV 08/18/23 23:59 PRN PRN Sodium Chloride 0 ml 08/18/23 06:00 Normal Saline 10 Ml Vial IJ 08/18/23 23:59 DIRECTED PRN Sterile Water 0 ml 08/18/23 06:00 Water,Injection,Sterile 10 Ml Vial IJ 08/18/23 23:59 DIRECTED PRN PFSH Active Problems Active Problems: Problem Status Onset Code Degenerative joint disease of right hip M16.11 Degenerative joint disease of left hip M16.12 Sleep apnea G47.30 Prediabetes R73.03 Medical History Medical History Vulvar lesion Lichen sclerosus Improved with estradiol Snoring (04/18/14) Hyperlipidemia History of HPV infection History of smoking SOB (shortness of breath) Myalgia Allergic rhinitis Gastroesophageal reflux disease treated with OTC H2 blockers. Abnormal Pap smear of cervix 2009 LEEP = CIN1. 2012 nl pap with + HPV Recurrent UTI Rx 4480-1711 with daily suppresive dose of Macrodantin. Anxiety disorder controlled with Citalopram Postmenopausal bleeding 06/2012. small amount brown tinged bleeding 5yrs postmenopause. Pt declined EMBx. no further episodes. Essential hypertension Medical History Comments:: Per pt. maternal aunt from anesthesia, I don't know if she OD'd from or what Surgical History Surgical History Cervical Conization/LEEP 2009. CIN1. Tobacco Smoking/Tobacco Use Status: Never Alcohol Alcohol Intake: current Alcohol intake frequency: holidays/special occasions only Substance Use Substance use type: does not use Prental History History 1 Para 1 Hx # Term Pregnancies Multiple births Hx # Pregnancies Ectopic pregnancies AB induced Hx Number of Living Children AB spontaneous Past Pregnancies Del. Date GA/Weeks # Preg Succ Route Wgt Sex Labor Lgth Anesthesia Location Prov [facility] 08/28/76 Yes vaginal 3401.943 g Male Delivery Date: 08/28/76 Last Updated by: Susan Soni Vital Signs and Lab Results Vital Signs Most Recent Vital Signs in EMR: Most Recent Vital Signs Temp Pulse Resp BP Pulse Ox 36.6 C 96 H 16 159/78 H 94 08/18/23 06:17 08/18/23 06:17 08/18/23 06:17 08/18/23 06:17 08/18/23 06:17 Lab Results Blood Type / Crossmatch: No Data to Display Complete Blood Count: White Blood Count 8.58 10^3/uL (4.4-10.8) 07/26/23 15:58 Red Blood Count 4.63 10^6/uL (3.93-5.22) 07/26/23 15:58 Hemoglobin 12.7 g/dL (11.2-15.7) 07/26/23 15:58 Hematocrit 39.5 % (36.0-46.0) 07/26/23 15:58 Platelet Count 350 10^3/uL (130-400) 07/26/23 15:58 Complete Metabolic Panel: Sodium 142 mmol/L (136-145) 07/26/23 15:58 Potassium 3.6 mmol/L (3.5-5.1) 07/26/23 15:58 Chloride 105 mmol/L (98-107) 07/26/23 15:58 Carbon Dioxide 27.7 mmol/L (21.0-32.0) 07/26/23 15:58 BUN 14 mg/dL (7-18) 07/26/23 15:58 Creatinine 0.9 mg/dL (0.55-1.02) 07/26/23 15:58 Est GFR (CKD-EPI 2020) 70.95 (mL/min/1.73m2) 07/26/23 15:58 Calcium 8.7 mg/dL (8.5-10.1) 07/26/23 15:58 Glucose 113 mg/dL (74-106) H 07/26/23 15:58 Liver Function Panel: No Data to Display Coagulation Panel: No Data to Display Cardiac Panel: No Data to Display Arterial Blood Gas: No Data to Display Venous Blood Gas: No Data to Display Pancreas Panel: No Data to Display Thyroid Panel: No Data to Display Infectious Disease: No Data to Display Blood Cultures: No Data to Display Toxicology Panel: No Data to Display Imaging and Studies Imaging and Studies Study information below may be from another EMR and interpreted by another provider. Please see original notes in EMR for more complete details. Stress Test Summary: STRESS TEST PATIENT NAME: Chichi Bravo UNIT #: [id number] ORDERING PROVIDER: Obey Royal PRIMARY CARE PROVIDER: OBEY ROYAL MD DATE/TIME OF SERVICE: 05/21/22 ADMITTING PROVIDER: ÁLVARO MCGINNIS MD : 1955 APPROVED REPORT Exam: Exercise Treadmill Patient Location: Out-Patient Room/Bed: Stress Nurse: Fallon Paige RN Ordering Provider:OBEY ROYAL, Contact Number: [phone] BMI: 29.75 Baseline Rhythm: Sinus Rhythm Comment: Flattened T-waves in V1 Indications: Exertional shortness of breath. Medical History Medical History: HTN. HLD. GERD. Elevated BMI. Allergic rhinitis. Recurrent UTI. Cardiac Medications: Losartan Allergies: Meperidine Cardiac Risk Factors: HTN. HLD. Former smoker. Obesity. Previous Cardiac Procedures: None Pretest Chest Pain Characteristics: None. Exercise History: Sedentary Physical Disabilities: Hips Lung Sounds: Clear to auscultation Heart Sounds: Regular Stress Test Details Test: Exercise stress testing was performed using a Man protocol. Rest Stress HR Resting HR Supine: 64 bpmMax Heart Rate (APMHR): 156 bpm Resting HR Standin bpmTarget HR (85% APMHR): 132 bpm Max HR Achieved: 160 bpm % of APMHR: 102 Recovery HR: 88 bpm HR response to stress: Normal HR response to stress BP Resting BP Supine: 178/84 mmHg Resting BP Standin/78 mmHg Max BP: 190/68 mmHg Recovery BP: 140/78 mmHg BP response to stress: Normal blood pressure response to stress. Comment: Pt took her Losartan this am. ECG Resting ECG: Sinus Rhythm Ectopy: None Stress ECG: Sinus Tachycardia ST Change: No significant ST segment changes noted Arrhythmia: VPC's Recovery ECG: Sinus Rhythm Recovery ST Change: No significant ST segment changes noted Recovery Arrhythmia: None Clinical Reason for Termination: Fatigue, Dyspnea Stress Symptoms: Dyspnea, General Fatigue, arm fatigue Exercise duration: 7 min5 sec Highest Stage Reached: Stage 3: 3.4 mph at 14% grade. Exercise capacity: 8.72 METs Scale: Sedentary Angina Score: 64 Rate Pressure Product: [id number] Stress ECG Conclusion 1. Resting electrocardiogram showed poor R wave progression 2. Patient exercised on the Man protocol and completed a workload of 8.72 METS, limited by fatigue and shortness of breath 3. Normal heart rate and blood pressure response to exercise. The patient achieved greater than 100% of predicted heart rate for age 4. There was no electrocardiographic evidence of myocardial ischemia 5. Isolated PVCs were seen Stress Test Summary STAGETime (mins)Speed (mph)Grade (%)[id number] [id number]/8497 Zejvsmpf23948/78 [id number]/804.5 [id number]/787 1 min [id number]/6896 3 min fxjlbdgw31601/88 6 min pesrsyxz38386/78 Dictated by: RAHEL FAITH,ÁLVARO EDMONDS Dictated:: 05/21/22 0949 <Electronically signed by Álvaro Mcginnis M.D. in [place]> 05/21/22 1013 Transcribed Date: Transcribed Time: By: MAIRA This is privileged, confidential information, intended only for the provider named. Any use or distribution by any person other than this provider is strictly prohibited. If you receive this report in error, please notify us immediately at [phone] and return the original report to us at the address above. Thank you. Echocardiogram Summary: Patient Name: Chichi Bravo Unit #: [id number] Loc: DI Ordering Provider: Obey Royal Status: REG CLI Primary Care Provider: Obey Royal Date of Exam: 07/26/23 Sex: F Admission Date: 07/26/23 : 1955 Age: 67 APPROVED REPORT EXAM: Comprehensive 2D, Doppler, and color-flow Echocardiogram Patient Location: Out-Patient Manager Internal: Yulia Cortes RDCS (AE) Indications: Abnormal EKG, Former smoker, HTN, Pre operative exam Other Information Study Quality: Adequate. Technically limited study due to body habitus. Conclusion The left ventricular wall thickness and chamber size. Calculated ejection fraction is 58%, visually appears 60 to 65%. There are no segmental wall motion abnormalities. Diastolic function is normal Normal right ventricular size and systolic function Atria are normal in size There is no structural or hemodynamically significant valvular disease Incidental finding of a liver cyst Wall motion Left Ventricle The left ventricle is normal size. The left ventricular systolic function is normal. The left ventricular ejection fraction is within the normal range. There is normal left ventricular wall thickness. There is normal LV segmental wall motion. There is no ventricular septal defect visualized. LVEF is 58%. Right Ventricle The right ventricle is normal size. The right ventricular systolic function is normal. Atria The left atrium size is normal. The right atrium size is normal. The interatrial septum is intact with no evidence for an atrial septal defect. Aortic Valve The aortic valve is normal in structure. Aortic valve is trileaflet. There is no aortic valvular stenosis. No aortic regurgitation is present. Mitral Valve The mitral valve is normal in structure. No evidence of mitral valve stenosis. Trace mitral regurgitation. Tricuspid Valve The tricuspid valve is normal in structure. There is no tricuspid valve stenosis. Trace tricuspid regurgitation. Unable to assess PA pressure. Pulmonic Valve Pulmonic valve is not well visualized. There is no pulmonic valvular stenosis. Great Vessels The aortic root is normal in size. The ascending aorta is normal in size. Aortic arch is normal in caliber. IVC is normal in size and collapses >50% with inspiration. Pericardium There is no pericardial effusion. 2D Dimensions IVSD d PLAX 0.81 cm F: 0.6-1.0Ao Root d 3.31 cm F: 2.7 - 3.3 LVPW d PLAX 0.83 cm F: 0.6 - 1.0Ao Asc Diam d 2.72 cm F: 2.3 - 3.1 LVID d PLAX 4.49 cm F: 3.8 - 5.2 LVDs 3.08 cm F: 2.2 - 3.5 LV EF Teichholz 59.4 % FS31.37 % LV EDV (Teich)92.0 mL LV ESV (Teich)37.4 mL M-Mode TAPSE 3.09 cm (M/F) >1.7 Auto EF LV EDV A4C85.4 mLLV EDV F6V695.9 mLLV EDV BP92.7 mL LV ESV A4C37.4 mLLV ESV A2C39.8 mLLV ESV BP38.9 mL LVEF(%) A4C56.1 %LVEF(%) A2C60.5 %LVEF(%) BP58.0 % LV SV A4C47.9 mlLV SV A2C61.1 mlLV SV BP53.8 ml LV CO A4C4.3 L/minLV CO A2C5.4 L/minLV CO BP4.8 L/min HR A4C89.56 BPMHR A2C88.24 BPMLV EDV Index (BP) LV Strain Long Pk Overal Avg (s) 17.95 LA Volume LA Length A4C4.9 cmLA Length A2C4.8 cm LA Area A4C s 18.27 cm2LA Area A2C s 16.00 cm2 LA Vol A4C A-L58.23 mLLA Vol A2C A-L45.65 mLLA Vol Biplane A-L52.1 mL LA Vol/BSA A4C A-LLA Vol/BSA A2C A-LLA Vol/BSA BP A-L 30.1 mL/m2 LA Vol A4C MOD53.6 mLLA Vol A2C MOD43.3 mLLA Vol BP MOD48.4 mL LV Diastology MV E' medial0.116 (>0.07 m/s)MV E Vmax 0.94 (0.4-1.3 m/s) MV E/E' MED8.09 (<14)MV A Vmax 0.90 (0.4-1.3 m/s) E/A Ratio 1.0 Aortic Valve AoV Vmax1.41 m/sLVOT Vmax 1.12 m/s AoV Peak Grad7.9 mmHgLVOT Peak Grad 5.0 mmHg AoV Area (Vmax)2.50 gb3PQTY VTI0.241 m AoV VTI0.320 mLVOT Mean Grad 2.8 mmHg AoV Mean Tahir.0.99 m/sLVOT SV 75.77 mL AoV Mean Grad4.4 mmHgLVOT Diam s 1.95 cm AoV Area (VTI)2.37 cm2 Velocity Ratio 0.79 Mitral Valve MV DT 168 (160-240 msec) MV Vmax TIPS 0.94 m/s MV Mean Grad 1.8 (<2mmHg) MV VTI 0.248 m Pulmonary Valve PV Vmax 0.72 (0.5-1.5 m/s)RVOT Vmax 0.63 m/s PV Peak Grad 2.1 mmHgRVOT Peak Gr.1.6 mmHg PV Mean Vel0.54 m/sRVOT VTI0.129 m PV Mean Grad 1.3 mmHgRVOT Mean Gr.0.7 mmHg Tricuspid Valve RA Pressure 3.00 mmHg TV S'0.16 m/s Ordered By: Obey Royal CC: Dictated By: Álvaro Mcginnis M.D. 07/27/23850 <Electronically signed by Álvaro Mcginnis M.D. in [place]> 07/27/23854 Transcribed By: Álvaro Mcginnis MD 07/27/23850 This is privileged, confidential information intended only for the provider named. Any use or distribution by any person other than this provider is strictly prohibited. If you receive this report in error, please notify us immediately at [phone] and return the original report to us at the address above. Thank-you. Pulmonary Function Summary: Pulmonary Function Test PATIENT NAME: Chichi Bravo UNIT #: [id number] ADMITTING PROVIDER: Brenda Multani M.D. PRIMARY CARE PROVIDER: OBEY ROYAL MD DATE OF ADMIT: 06/25/22 : 1955 Date of service: 06/25/22 Time of Service: 13:03 Pulmonary Function Test Result Requesting Provider Obey Royal Indications: FARFAN Interpretation Spirometry: There is no airflow limitation. There is no bronchodilator response. Lung Volumes: Normal lung volumes. Diffusion Capacity: Normal diffusion Airway Pressure: Normal airways resistance. Impression Normal pulmonary function testing Note: When compared to 07/31/19, there has been a decreased in FVC, TLC and diffusion that is unexplained by aging alone. Clinical Correlation therefore is recommended. cc: Dictated by: BRENDA MULTANI MD Dictated: 06/26/22 Time: 1658 <Electronically signed by Brenda Multani M.D.> Date: 06/26/221700 Date: Date: Transcribed Date: 06/26/22 Transcribed Time: 1658 By: MANJIT This is privileged, confidential information, intended only for the provider named. Any use or distribution by any person other than this provider is strictly prohibited. If you receive this report in error, please notify us immediately at [phone] and return the original report to us at the address above. Thank you. Anesthesia Assessment and Plan Anesthesia History Personal History: No History of Anesthesia Complications Family History: No Family History of Anesthesia Complications Exercise Tolerance Exercise Tolerance: Metabolic Equivalents>4 Pertinent Negatives Pertinent Negatives: No Symptoms of GERD, No Major Cardiovascular Symptoms or Complaints, No Major Pulmonary Symptoms or Complaints and No History of CVA/TIA Cardiac & Pulmonary Exam Cardiac Exam: Normal S1/S2 Heart Sounds Pulmonary Exam: Clear Bilateral Breath Sounds Implantable Cardiac Device Does patient have a Pacemaker or an ICD?: No Airway Exam Known Difficult Airway: No Mallampati Class: 2 Mouth Opening: Normal (> 3cm) Thyromental Distance: Greater than 3 cm Neck Range of Motion: Full ROM Neck Circumference: Normal Teeth Condition: Normal Dentition ASA Classification ASA Score: ASA 2 Emergency Case?: No NPO Status NPO Status: NPO Clears >2 hours, Solids >8 hours Anesthesia Plan Resuscitation Status: Full Code Anesthesia Technique: Spinal Anesthesia Airway Planned: Natural Airway Monitors Used: Standard Monitors
[2023-08-18] MEDS: ceFAZolin 2 GM/50 ML BAG IVPB (08:03)
--- NOTE | 2023-08-18 09:00 | DI.RAD_ITS ---
Exam(s) XR HIP LT IN OR EXAM: XR HIP LT IN OR CLINICAL HISTORY: LEFT HIP ARTHRITIS. TECHNIQUE: 2D digital imaging was performed. COMPARISON: No exams were available for comparison FINDINGS: Fluoroscopy provided during hip arthroplasty. See procedure report for details. Total fluoroscopy time 35.8 seconds IMPRESSION: Radiation exposure index/cumulative dose: Venturar= 3.9413 mGy DATA REPOSITORY: RADIATION DOSE DELIVERED:
[2023-08-18] MEDS: Ondansetron 4 MG/2 ML VIAL IVP (09:29)
--- NOTE | 2023-08-18 09:39 | ROE_ITS ---
Date of service: 08/18/23 Time of Service: 08:00 Operative Note Operative Note DATE OF PROCEDURE: 08/18/23 PRE-OP DIAGNOSIS: Left Hip Osteoarthritis POST-OP DIAGNOSIS: same PROCEDURE: Left Anterior Total Hip Arthroplasty with Intraoperative Navigation SURGEON: Miguel Trinh PRINCIPAL IOS DEVELOPER: Power Dave ANESTHESIA TYPE: Spinal Refer to Anesthesia Record ESTIMATED BLOOD LOSS: 100 PATHOLOGY: none sent TOURNIQUET TIME: 0 COMPLICATIONS: None Patient was transported to: PACU Patient's condition: stable Implants: 1. Depuy Green Ridge Acetabular Component, 50mm 2. Depuy Acetabular Liner, [id number] 3. Depuy Actis Standard Collared Femoral Stem, Size 5 4. Depuy Altrx Ceramic Femoral Head, Size 32+5mm Indications: I have seen Clare in clinic for symptoms of hip arthritis, confirmed with radiographic findings. Clare has exhausted nonoperative methods and was having significant limitations in daily function and desired better function and less pain. I discussed the technical details of a hip replacement. I explained the risks of the procedure to include, but not limited to, bleeding, infection, pain, stiffness, fracture, damage to nerves and vessels, damage to muscles and tendons, loosening, instability, leg length inequality, need for repeat procedu re, blood clot and cardiopulmonary demise. Despite these risks, Clare elected to proceed. Findings: There was significant signs of arthritis throughout the hip with complete loss of cartilage of the femoral head and notable deformity. Procedure Description: Clare was greeted in the preoperative holding area where the correct side was identified and marked. The consent was reviewed with the patient and signed. The history and physical was updated. All questions were answered. She was taken back to the operating room. A spinal anesthestic was then administered. The feet were wrapped with cast padding and Coban and then placed into the boot liners and then into the boots. Care was taken to protect the skin and make sure the heels were fully down and the boots were stable. The patient was then positioned onto the HANA table. Both legs were held in a neutral position. SCDs were applied. The patient was then slid down onto a peroneal post. Prophylactic antibiotics in the form of Cefazolin were administered. 1g of Tranxemic Acid was given intravenously within 30 minutes of incision. The left leg was then prepped with Chloraprep and draped in a standard fashion. A second prep with Chloraprep was performed prior to placement of a shower-curtain type drape with Iodine impregnated skin protection. A timeout to confirm correct identity, side and site, procedure, allergies, anesthesia, and medical concerns was performed. An obliquely oriented incision was made starting lateral to the ASIS and running distal over the Tensor Fascia Cassia (TFL) muscle belly toward the fibular head, approximately 10cm. The skin and soft tissue was dissected sharply, through Ivy?s fascia, and to the fascia of the TFL. With the fascia and superior border of the IT band identified, the fascia was incised with a new knife just above any perforators from the IT band. The TFL muscle belly was bluntly dissected away from the fascia and moved laterally. The fat between TFL and rectus was identified to ensure the dissection was not within the TFL. Blunt dissection created space between abductors and the capsule and retractor was placed over the lateral femoral neck. The fibers of the rectus femoris tendon were identified and these were freed from the anterior capsule. A second cobra retractor was placed around the medial femoral neck. The TFL was further retracted laterally to show the deep fascia. Careful dissection through this layer identified three main crossing vessels of the lateral femoral circumflex. These were cauterized in multiple locations and then cut without any noticeable bleeding. The TFL was further released bluntly from the deep fascia to expose anterior hip capsule and fat The Alfredo orthopaedic retractor was then placed beneath the TFL and against sartorius and medial soft tissues to protect and retract the soft tissues. A T-capsulotomy was then performed starting at the superior lateral acetabulum and moving distally to the intertrochanteric ridge. These capsular flaps were tagged with a No. 1 Ethibond and elevated from within. The capsular flaps were released to the shoulder of the lateral neck and to the lesser trochanter to give excellent visualization of the proximal femur. A neck osteotomy was performed using an oscillating saw based on preoperative templates. This cut started in the shoulder and of the lateral neck and exited medially. The saw was at all times directed medially to avoid injury to the greater trochanter. Gross traction was applied to the leg and the osteotomy opened. The femoral head was removed with a corkscrew, making sure to protect the TFL on its exit. Traction was released after head removal. This was measured on the back table to determine the starting reamer size. Portions of the rectus obscuring visualization were minimally elevated off the superior acetabulum. An anterior retractor was placed over the anterior wall between capsule and labrum and attached to the Gripper retraction system. The femur was rotated to 90 degrees and medial capsule was fully released until the lesser trochanter was palpable and visible; the femur was returned to 30 degrees. A posterior retractor was placed similarly between capsule and labrum. This provided excellent visualization. The contents of the cotyloid fossa were removed with electrocautery and the labrum was removed with a knife. There was a notable floor osteophyte. There was significant chondromalacia of the superior acetabulum. Acetabular reaming began with a 44mm reamer. This first reaming was directed anterior to posterior and medial to get down to the true floor. This was inspected and reamed until the true floor was reached. The anterior retractor was then released and entry and exit was provided by traction on the capsular flaps. I then reamed sequentially up to a 50mm reamer where good fit was obtained. The larger reamers were oriented based on anatomical reference of the anterior and lateral gandhi to ensure proper abduction and anteversion. Positioning and size was confirmed with the fluoroscopy. A 50mm Depuy [place] acetabular component was selected. The acetabulum was reamed around the periphery with the selected acetabular size to prevent a rim fit. The deep tissues were irrigated. The acetabular component was then impacted in a position of about 40-45 degrees of abduction and 15-20 degrees of anteversion, using the patient?s anatomy as the ultimate landmark. Fluoroscopy was used to confirm this. There was excellent mechanical design drafter of the acetabular component and the inserting handle was removed. The acetabular liner, Depuy [id number] polyethylene liner, was inserted and lined up with the tines of the acetabular component. There was no soft tissue interposition. The liner was then impacted into position and confirmed to be well-seated. A portion of the sarina-articular cocktail was then injected around the acetabulum into the capsule and periosteum. This cocktail consisted of 123mg of Ropivacaine, 0.25mg of Epinephrine, 0.04mg of Clonidine, and 15mg of Ketorolac, diluted to 50cc. The leg was rotated to 120 degrees. Any remaining medial capsule was released until the lesser trochanter was easily palpable. A retractor was placed medially. The lateral capsule was further released into the shoulder to allow access to the greater trochanter. A Smith retractor was placed over the greater trochanter which allowed the trochanter to flip in front of the capsule for excellent exposure. The leg was brought down into maximal extension and 20 degrees of adduction while ensuring there was no impingement on the acetabulum. Any remnant capsule within the trochanter was released. Piriformis and obturator externis were identified and protected. There was excellent access to the proximal femur. The lateral neck remnant was removed with a rongeur. A blunt canal probe was used to identify the canal and trajectory for later broaching. A box osteotome initiated the broach course. A small curved rasp and a curved curette were used to work laterally. Broaching then began with a starter Actis broach. This was inserted manually around the trochanter and into the canal before mallet blows. The broach was seated to a few millimeters below the cut level based on the neck cut and the preoperative template. Sequential broaching was continued with the [employer] pneumatic broaching device until a tight fit was obtained with good rotational control of the femur. A trial standard neck was inserted along with a +1 trial head. The leg was brought out of extension and adduction and then reduced with traction and internal rotation. The leg was stable anteriorly in a position of 30 degrees of extension and 90 degrees of external rotation. Fluoroscopy was used to ensure there was no fracture and the stem was seated well. Leg lengths were checked with an AP pelvis and pelvic reference points. [place] navigation system was used to confirm appropriate positioning and leg length and offset. There was overcorrection of leg length and undercorrection of offset. Once content with the corrections for desired offset and leg lengths, the leg was brought back into extension, external rotation and adduction. The periosteum and surrounding tissue was injected with remaining portion of the sarina-articular cocktail. The proximal femur was irrigated as well as the deep tissues. The Lalalamais standard collared stem, size 5, was then manually inserted into the proximal femur making sure to control rotation. It was then malleted into position with light blows, giving breaks to allow bone expansion and decrease risk of fracture. The selected Depuy Altrx Ceramic Head, size 32+5mm, was then placed onto the clean and dry trunnion and secured with impaction onto the tapered fit. The leg was brought back out of extension and adduction and reduced with traction and internal rotation. Stability was confirmed with no shuck at 90 degrees of external rotation and 30 degrees of extension. No impingement through range of motion arc. Final x-ray images were obtained with fluoroscopy to confirm adequate positioning and no intraoperative fracture. The deep tissues were thoroughly irrigated with Surgiphor, betadine solution. This was allowed to sit in the wound for 3 minutes before being thoroughly irrigated out with normal saline. The capsule was then reapproximated with the previously placed Ethibond sutures. The TFL fascia was finally closed with a No. 2 Stratafix, barbed suture. Deep tissues were then reapproximated with 0 Vicryl and a running 2-0 Vicryl. The skin was closed with a running 4-0 Monocryl in a subcuticular fashion. This was reinforced with skin glue. A Mepilex silver dressing was applied. At the end of the case, all counts were correct. Clare was transferred to the hospital bed without difficulty and suffering no apparent complication. Clare has a good prognosis. Physical therapy will start today and without restrictions, weight-bearing as tolerated. Aspirin 81mg BID will be used for DVT prophylaxis.
[2023-08-18] MEDS: Droperidol 5 MG/2 ML VIAL 0.625 MG IVP (09:59)
--- NOTE | 2023-08-18 12:58 | PT.INIE ---
PT Notes Visit Reasons: L THR Physical Therapy Day Surgery Initial Evaluation Date: 08/18/2023 Referring Doctor: SHILA Horne PT Orders: PT CONSULT: S/P Ortho Surgery Precautions: WBAt on the L LE with AD. Patient Profile/Admitting Diagnosis: Chichi is a 67-year-old female with primary unilateral osteoarthritis of the left hip and is status post left anterior total hip arthroplasty on postoperative day 0. PMHX: All Active Problems (Updated 12/02/22 @ 16:08 by Sumi Caal MD) Degenerative joint disease of right hip (Acute) Degenerative joint disease of left hip (Acute) Sleep apnea (Acute) Prediabetes (Acute) Medical History (Updated 12/02/22 @ 16:08 by Sumi Caal MD) Vulvar lesion Lichen sclerosus Improved with estradiolSnoring (04/18/14) Hyperlipidemia History of HPV infection History of smoking SOB (shortness of breath) Myalgia Allergic rhinitis Gastroesophageal reflux disease treated with OTC H2 blockers.Abnormal Pap smear of cervix 2009 LEEP = CIN1. 2011 nl pap with + HPV Recurrent UTI Rx [id number] with daily suppresive dose of Macrodantin. Anxiety disorder controlled with CitalopramPostmenopausal bleeding 06/2012. small amount brown tinged bleeding 5yrs postmenopause. Pt declined EMBx. no further episodes. Essential hypertension Surgical History Cervical Conization/LEEP 2009. CIN1. Social History/Home Situation: Lives alone in a private home with 2 steps to enter with rails on both sides. She has stand steps to get to her bedroom upstairs with a rail on the right side going up. Independent with all aspects of ADLs without an assistive device although has had increasing difficulty with mobility performance due to worsening left hip pain. Will have support from son and friends who live nearby. Equipment Owned/DME: [facility] Subjective: Reports burning pain on the left surgical incision and the left front thigh at rest and with movement that did not limit mobility performance. Denies headache, chest pain, and lightheadedness throughout session. Objective: General Observation: Mepilex Ag over surgical incision. TEDS to be legs. Cold pack over left surgical incision. Mental Status: A and O x 4 Pain: As above ROM: Right Lower Extremity: Hip flexion WFL. Hip abduction WFL. Knee flexion WFL. Ankle dorsiflexion WFL. Ankle plantarflexion WFL. Left Lower Extremity: Hip flexion WFL. Hip abduction WFL. Knee flexion WFL. Ankle dorsiflexion WFL. Ankle plantarflexion WFL. Strength: Right Lower Extremity: Hip flexors 5/5. Hip abductors 5/5. Knee flexors 5/5. Knee extensors 5/5. Ankle dorsiflexors 5/5. Ankle plantarflexors 5/5. Left Lower Extremity:Hip flexors 4-/5. Hip abductors 4-/5. Knee flexors 5/5. Knee extensors 4-/5. Ankle dorsiflexors 5/5. Ankle plantarflexors 5/5. Sensation: Intact as to pain and light pressure in BLE Bed Mobility/Transfers: Minimal cueing provided for use of B hands as needed for support, movement sequence, Ad management, and and posture to reduce fall risk and minimize pain report Sit to stand standby assist with FWW Stand to sit standby assist with FWW Bed to chair standby assist with FWW Gait: Facilitated safe and correct performance of level surface ambulation covering a distance of 150 feet using front wheeled walker with reciprocal swing through heel toe gait pattern requiring only standby assist and minimal verbal cueing for AD management, posture, and directional changes to reduce fall risk and minimize pain. Stairs: Guided patient with safe and correct negotiation of 12 x 4 inch steps and 8 x 6 inch steps while holding onto bilateral rails for the first set and only holding onto 1 rail with 1 hand on the second set requiring only standby assist and moderate verbal cueing for correct correct limb sequencing, posture, and hand placement to reduce fall risk and minimize pain Balance: Static Sitting: Normal Dynamic Sitting: Normal Static Standing: Fair Dynamic Standing: Fair Special Tests: Mobility Limitations Standardized Measure [facility] AM-PAC 6 clicks Basic Mobility Inpatient Short Form: Raw Score: 23 CMS Score: 11% deficit Informed Consent/Education: Patient instructed in purpose of PT consult. Packet containing KARLA exercise protocol has been given to patient. Education and training on initial set of exercises that can be done at home have been completed with patient. Trained patient with correct performance of exercises below to maximize motor control, joint flexibility, soft tissue extensibility of the L hip musculature to facilitate return to independent functional mobility performance. Access Code: [email or web address] URL: [email or web address] Date: 08/18/2023 Prepared by: Samantha Echevarria Exercises - Gluteal Sets - 1 x daily - 7 x weekly - 1 sets - 10 reps - 5 hold - Supine Heel Slide - 1 x daily - 7 x weekly - 1 sets - 10 reps - 5 hold - Supine Ankle Pumps - 1 x daily - 7 x weekly - 1 sets - 10 reps - 5 hold - Seated March - 1 x daily - 7 x weekly - 1 sets - 10 reps - 5 hold - Seated Long Arc Quad - 1 x daily - 7 x weekly - 1 sets - 10 reps - 5 hold Assessment: Chichi requires the use of a front wheel walker for mobility ADL performance to maximize independence and reduce fall risk. Patient presents with clinical signs and symptoms consistent with current/admitting diagnoses that have resulted to mobility limitations, gait instability, generalized weakness, and impairment of motor control as demonstrated by the following impairment level findings: 1. Decreased strength to left hip major muscle groups 2. Impaired standing balance Impairments are contributing to the following functional limitations: 1. Inability to safely ambulate without assistive device 2. Increase completion time for mobility ADL performance 3. Increased fall risk Patient is assessed as a 18186 moderate complexity complexity based on the following: History: 67-year-old female with impairment level findings, functional limitations, and past medical history as indicated above Examination: Demonstrable impairment in strength, balance, and mobility level with underlying impairments and functional limitations as documented above Presentation: Evolving Decision Makin moderate complexity Goals: N/A. PT evaluation and 1-2 treatment sessions only for functional mobility training using recommended AD and for HEP instruction. Plan of Care/Treatment Plan: N/A. PT evaluation and 1-2 treatment session only for functional mobility training using recommended AD and for HEP instruction. DISCHARGE RECOMMENDATIONS: Home when medically cleared by orthopedic surgeon. Recommend outpatient PT services in order to optimize functional mobility outcomes and facilitate return to independent community ambulation without an assistive device. TREATMENT CODE/TIME: 28543 x 29 minutes for 1 unit beginning at 12:58 PM. Thank you for the opportunity to participate in the care of this patient. Samantha Echevarria PT, DPT, CLT [facility] [place], [place]
--- NOTE | 2023-08-18 13:36 | PDOC.DSDIS_ITS ---
Date of service: 08/18/23 Time of Service: 13:36 Discharge Plan Disposition Patient Disposition: Home Condition: Good Discharge Details Reason For Visit: L THR Attending Provider: Miguel Trinh Primary Care Provider: Michele Royal Home Meds and New Rx's Prescriptions: New celecoxib 200 mg capsule 200 mg PO BID Qty: 60 0RF aspirin 81 mg tablet,delayed release (DR/EC) 81 mg PO BID Qty: 60 0RF acetaminophen 500 mg tablet 1,000 mg PO TID Qty: 90 3RF dexamethasone 4 mg tablet 4 mg PO DAILY Qty: 2 0RF oxycodone 5 mg tablet 5 mg PO Q4H MDD 6 tabs PRN (Reason: pain) Qty: 20 0RF Continued estradiol 0.01 % (0.1 mg/gram) cream 0.5 g vaginal DAILY Qty: 42.5 2RF Rx Instructions: Massage a pea-sized amount around the vaginal opening, the perineum, labia, clitoris and anus. Apply twice daily x2 weeks. Then use twice weekly. MULTI FOR HER 50 PLUS SOFTGEL 400 MCG capsule 400 mcg PO DAILY Patient Comments: TAKES QOD budesonide-formoterol [Symbicort] 160-4.5 mcg/actuation HFA aerosol inhaler 2 puff inhalation BID PRN esomeprazole magnesium 40 mg capsule,delayed release(DR/EC) 40 mg PO DAILY citalopram [Celexa] 10 mg tablet 20 mg PO DAILY albuterol sulfate 90 mcg/actuation HFA aerosol inhaler 2 puff inhalation Q6H PRN losartan 50 mg tablet 50 mg PO DAILY cetirizine 10 mg tablet 10 mg PO DAILY PRN Discontinued celecoxib [Celebrex] 100 mg capsule 100 mg PO DAILY Discharge Instructions Additional Instructions: Total Hip Discharge Instructions Activity: The most important activity is to walk. You should try to take short walks a few times a day. You have no restrictions on movement or positioning, but do not try to force what you do. You will find some stiffness and weakness with hip flexion (lifting your knee). Do not try to strengthen this too early, continue to practice walking and stairs and this will come. - Outpatient physical therapy can be helpful to help return you to a normal gait and improve your flexibility and strength. This can start around 2 weeks. For some patients, it?s not necessary. Usually this is determined at the time of discharge or at the first post-operative visit. - You should wear the GWEN hose on both legs for 2 weeks. Dressing: Keep the surgical dressing in place for at least one week. After the first week it may be removed and replace with light gauze and tape or nothing. It may get wet after 3 days but avoid soaking the dressing. If it gets wet, just lightly pat dry. It is important to always keep some gauze between skin folds, especially when you are sitting. Spend some time with the wound exposed when you are lying flat as the incision does wrinkle onto itself. Medications: - You should take Tylenol and an anti-inflammatory Celebrex as your primary pain control medications. If the Celebrex is too expensive or not covered, please call the office for another alternative (Advil/Ibuprofen or Naproxen/Aleve). - You have been prescribed a stronger pain medication Oxycodone for breakthrough pain, take as needed as prescribed. - You will continue your stomach acid reduction agent esomeprazole to help reduce stomach acid and reflux. - You have also been prescribed Decadron to help with post-operative nausea and pain. You will take this for two days starting tomorrow. - You will be taking Aspirin 81mg twice a day for DVT prevention unless instructed otherwise. - If you have constipation you should take Colace or Miralax (both ove [id number]). It takes most people 3-4 days to have a bowel movement. Follow-up: 2 weeks If you have any acute concerns or questions, please do not hesitate to contact the office at [phone]. You may contact Dr. Trinh with any questions after hours through the hospital at [phone] or on his cell phone at [phone]. Referrals: Miguel Trinh MD [ [facility] STAFF PHYSICIAN] - Equipment/Supplies: Walker Activity:: Activity as Tolerated Shower/Bathe:: 72 hours Diet:: As Tolerated Discharge Orders Discharge Orders: Discharge Order (Routine); Ordered 08/18/23 Ordered By: Miguel Trinh DS: Diagnosis Discharge Diagnosis (1) Degenerative joint disease of left hip: Status: Acute
--- NOTE | 2023-08-18 14:12 | W.ANESPOSTOP ---
Postoperative Evaluation Date, Time and Location Date Performed: 08/18/23 Time Performed: 13:11 Patient Location: Day Surgery Unit Vital Signs Most Recent Imported Vital Signs: Most Recent Vital Signs Temp Pulse Resp BP Pulse Ox 36.9 C 108 H 16 177/81 H 95 08/18/23 13:39 08/18/23 13:39 08/18/23 13:39 08/18/23 13:39 08/18/23 13:39 Pain Score Most Recent Pain Score: Most Recent Pain Score Pain Level 1 08/18/23 13:39 Assessment Mental Status: Awake (Alert & Oriented to Patient Baseline) Airway and Respiratory Function: Patent airway with normal (patient baseline) respiratory exam Cardiovascular Function: Hemodynamically Stable Hydration Status: Adequately Hydrated Nausea & Vomiting: No Nausea or Vomiting Pain: Pain is tolerable per patient Peripheral Nerve Block: Patient did not receive a nerve block
== END 2023-08-18 14:31 | disposition home or self-care (01) ==
PROVIDERS: PCP Family Medicine; Visit Provider Student in an Organized Health Care Education/Training Program
PROC: (CPT 27130; principal; 2023-08-18 07:30)
DX: M16.12 Unilateral primary osteoarthritis, left hip (principal); R73.03 Prediabetes; G47.30 Sleep apnea, unspecified; E78.5 Hyperlipidemia, unspecified
CPT/HCPCS: 20985; 27130; C1776; 97162; 73501; J0690; J1790; J2405

== ENCOUNTER 2023-09-02 13:06 | Outpatient (CLI) | payer MEDICARE, SELFPAY ==
--- NOTE | 2023-09-02 11:30 | DI.RAD_ITS ---
Exam(s) XR HIP LT COMPLETE AP PELVIS EXAM: XR HIP LT COMPLETE AP PELVIS CLINICAL HISTORY: 1ST POST OP L KARLA. TECHNIQUE: 2D digital imaging was performed. Three images were obtained. AP pelvis and lateral view s were obtained. COMPARISON: CR XR HIP LT COMPLETE AP PELVIS from 05/06/2022 XA XR HIP LT IN OR from 08/18/2023 FINDINGS: BONES: There are stable post operative changes of a left total hip replacement present. No fracture or dislocation. JOINTS: The orthopedic hardware is in good position. No evidence of hardware loosening. Mild degene rative changes are seen in the right hip. SOFT TISSUE: Normal. IMPRESSION: Stable postoperative changes. DATA REPOSITORY: RADIATION DOSE DELIVERED:
== END 2023-09-02 13:07 | disposition home or self-care (01) ==
LOC: DIORS 13:06
PROVIDERS: PCP Family Medicine; Referring Provider Family Medicine; Visit Provider Student in an Organized Health Care Education/Training Program
DX: Z96.642 Presence of left artificial hip joint (principal); Z47.1 Aftercare following joint replacement surgery
CPT/HCPCS: 73502

== ENCOUNTER → 2023-10-04 14:38 | Outpatient (BNVA) | payer MEDICARE, SELFPAY | PROVIDERS: PCP Family Medicine; Visit Provider Student in an Organized Health Care Education/Training Program | DX: Z47.1 Aftercare following joint replacement surgery (principal); S76.812D Strain of other specified muscles, fascia and tendons at thigh level, left thigh, subsequent encounter; X58.XXXD Exposure to other specified factors, subsequent encounter; Z96.642 Presence of left artificial hip joint ==

== ENCOUNTER 2024-05-03 15:47 | Outpatient (REF) | payer MEDICARE, SELFPAY ==
--- NOTE | 2024-05-03 16:00 | PAPFT_PTH ---
PATIENT: Chichi Bravo LOC: [facility] U#:[id number] AGE/SX: 68/F ROOM: RE05/03/[address]: Sumi Caal MD : 1955 BED: DIS: 05/03/2024 SPEC #: [id number] RECD: 05/03/24 17:51 STATUS: CHAVO REQ #: [id number] STEVEN: 05/03/24 16:[address]: Sumi Caal DEPT: [facility], [facility] Cytology RECD BY: Maria R Goldberg ENTERED: 05/03/24 17:51 SP TYPE: PAPFT OTHR DR: Lacey Gomez Tissues: 1 - CX/ENDOCX FOR PAP SMEARS Procedures: PAP THIN PREP/[facility] Screening HPV DNA PROBE Comments: [id number] (HPV 16 & 18/45)
== END 2024-05-03 15:48 | disposition home or self-care (01) ==
LOC: LBN 15:47
PROVIDERS: PCP Nurse Practitioner; Visit Provider Obstetrics & Gynecology
DX: Z11.51 Encounter for screening for human papillomavirus (HPV) (principal); Z01.419 Encounter for gynecological examination (general) (routine) without abnormal findings
CPT/HCPCS: 88142; 87624

== ENCOUNTER 2024-05-17 18:42 | Outpatient (REF) | payer MEDICARE, SELFPAY ==
--- OUTSIDE RECORDS SUMMARY | 2024-05-17 18:52 | XMS_ITS | Encounter Summary ---
Author Organization [facility] Address [address] [place] [address] Care Team Providers Care Auto Leasing Manager Name Role Phone Gia Owens MD Primary Care Provider Encounter Details Date Type Department Care Team (Late st Contact Info) Description 07/12/2012 Results Only [facility] Laboratory Services - [facility] ([facility]) [address] [place], [place] [id number] Hank Mina MD [address] [place] [address],[address] [place] [address] Social History Tobacco Use Types Packs/Day Years Used Date Smoking Tobacco: Never Assessed Sex and Gender Information Value Date Recorded Sex Assigned at Not on file Gender Identity Not on file Sexual Orientation Not on file documented as of this encounter Plan of Treatment Not on file documented as of this encounter Procedures Procedure Name Priority Date/Time Associated Diagnosis Comments PAP TEST- RESULT ONLY Routine 07/12/2012 0:00 EST documented in this encounter Results * PAP TEST- RESULT ONLY (07/12/2012 0:00 EST) Pathology Report: CYTOPATHOLOGY REPORT Reports generated via electronic interface contain original data; however they are lacking the format of the original report. Caution should be taken when reading/interpreti ng unformatted reports. Name: ? EUSEBIO GALICIA ? Accession #: ? [id number] ? : ? 1955 (Age: 56) ??F ?Collect Date: ? 07/12/2012 ? Location: ? [facility] ? Receive Date: ? 07/13/2012 ? Provider: HANK MINA MD Copy to: ? Final Report SPECIMEN ADEQUACY ? Satisfactory for Evaluation - transformation zone component present - scant squamous epithelial component secondary to excessive inflammation GENERAL CATEGORIZATION ? Negative for Intraepithelial Lesion or Malignancy INTERPRETATION ? Reactive cellular changes associated with inflammation present (includes repair). Last Menstural Period: 2007 Previous Gynecologic Pathology: IRVIN I HPV: + 05/2010 Treatment History: LEEP: h/o Specimen/Source: ??Pap Test, Cervix/Endocervix, ThinPrep Imaging System with manual evaluation Document reviewed and electronically signed by: ? SHAKEEL MIMS MD ? Report ??Date: 07/22/2012 13:34 HPV with Pap Test ? Date Ordered: ? 07/22/2012 ? Status: ?? Signed Out ?Date Complete: ? 07/26/2012 ? By: ??System Interface ? Date Reported: ? 07/26/2012 ? Interpretation RESULT: Positive for high or intermediate risk HPV. E6 OR E7 mRNA from one or more types of HPV types 16,18,31, 33,35,39,45,51,52, 56,58,59,66, and 68 is detected by rig operator mediated amplification. High and intermediate risk HPV types are associated with most squamous intraepithelial lesions and cervical cancers. Comments Document reviewed and electronically signed by: ? System Interface ? Report date: 07/26/2012 By the signature above, the attending physician certifies that he/she has personally conducted a gross and/or microscopic examination of the described specimens and rendered or confirmed the above diagnosis. End of Report [facility] 07/12/2012 07/13/2012 Hank Mina MD PATHOLOGY ORDERABLES Performing Organization Address City/State/[facility] Co de Phone Number [facility] [address] [place] [address] documented in this encounter Visit Diagnoses Not on filedocumented in this encounter Care Teams Auto Leasing Manager Relationship Specialty Start Date End Date Chadwick-Gia Vargas MD [address] [facility],[address] [address] PCP - General 09/20/09 documented as of this encounter
--- OUTSIDE RECORDS SUMMARY | 2024-05-17 18:52 | XMS_ITS | Encounter Summary ---
Author Organization [facility] Address [address] [place] [address] Care Team Providers Care Torch Brazer Name Role Phone Unavailable Primary Care Provider Unavailabl e Encounter Details Date Type Department Care Team (Late st Contact Info) Description 07/25/2008 14:32 EST Hospital Encounter [facility] - Other [address] [place] [address] Key Mckeon, STACIA [address] [place] [id number] Discharge Disposition: Home-Health Care Svc Social History Tobacco Use Types Packs/Day Years Used Date Smoking Tobacco: Never Assessed Sex and Gender Information Value Date Recorded Sex Assigned at Not on file Gender Identity Not on file Sexual Orientation Not on file documented as of this encounter Discharge Disposition Disposition Code Departure Means Destination Home-Health Care Svc documented in this encounter Plan of Treatment Pending Results Name Type Priority Associated Diagnoses Date /Time CYTOPATHOLOGY Pathology Routine 09/13/2009 0:00 EST CYTOPATHOLOGY Pathology Routine 09/13/2009 0:00 EST Scheduled Orders Name Type Priority Associated Diagnoses Orde r Schedule CYTOPATHOLOGY Pathology Routine For medicat ions that can be administered at any time during the hospitalization for visit such as immunizations. for 1 Occurrences starting 09/17/2009 CYTOPATHOLOGY Pathology Routine For medicat ions that can be administered at any time during the hospitalization for visit such as immunizations. for 1 Occurrences starting 09/17/2009 documented as of this encounter Procedures Procedure Name Priority Date/Time Associated Diagnosis Comments CYTOPATHOLOGY Routine 09/13/2009 0:00 EST CYTOPATHOLOGY Routine 03/27/2009 0:00 EDT SURGICAL PATHOLOGY Routine 09/12/2008 0: 00 EST HPV DETECTION, HIGH RISK TYPES Routine 07/25/2008 10:30 EST CYTOPATHOLOGY Routine 07/25/2008 0:00 EST documented in this encounter Results * CYTOPATHOLOGY (09/13/2009 0:00 EST) Pathology Report: CYTOPATHOLOGY REPORT ? Reports generated via electronic interface contain original data; ? however they are lacking the format of the original report. ? Caution should be taken when reading/interpreti ng unformatted reports. ? Name: ? EUSEBIO GALICIA ? Accession #: ? [id number] ? : ? 1955 (Age: 53) ??F ?Collect Date: ? 09/13/2009 ? Location: ? [facility] ? Receive Date: ? 09/17/2009 ? Provider: ?OBEY P TOD MD ? Copy to: ?ENRIQUE P YOUNG-SOUZA MD ? Specimen/Source: ?Pap Test, Vagina/Cervix/Endo cervix, ThinPrep Imaging ? System with manual evaluation ? Last Menstrual Period: ? 1 1/2 yr. ? Previous Gynecologic Pathology: ? ASC-US: 12/08 elsewhere ? HPV: + elsewhere ? IRVIN I: negative HPV 79 ? ASC-US: 06 HPV negative ? ASC-US: 07/09 ? Treatment History: ? Colposcopy: unable to do bx + ECC ? Colposcopy: 01/09 LG changes-no discrete lesions ? SPECIMEN ADEQUACY ? Satisfactory for Evaluation ? - transformation zone component present ? GENERAL CATEGORIZATION ? Epithelial Cell Abnormality ? INTERPRETATION ? Squamous Cell Abnormality - Atypical squamous cells, undetermined ? significance (ASC-US). ? EDUCATIONAL NOTES/RECOMMENDATI ONS ? [facility] recommends following the 2006 Consensus Guidelines for the Management of Women with Abnormal Cervical Cancer Screening Tests (JLGTD, ? 2007;11(4):201-222 ). ??Consensus guidelines are available online at ? www.ASCCP.org. ? Document reviewed and electronically signed by: ? ERIBERTO PAPPAS MD [facility] ? Report Date: ??09/19/2009 15:54 ? End of Report ? [facility] 09/13/2009 09/17/2009 Obey Ocasio MD PATHOLOGY ORDERABLES [facility] [address] [place] [address] * CYTOPATHOLOGY (03/27/2009 0:00 EDT) Pathology Report: CYTOPATHOLOGY REPORT ? Reports generated via electronic interface contain original data; ? however they are lacking the format of the original report. ? Caution should be taken when reading/interpreti ng unformatted reports. ? Name: ? EUSEBIO GALICIA ? Accession #: ? [id number] ? : ? 1955 (Age: 53) ??F ?Collect Date: ? 03/27/2009 ? Location: ? [facility] ? Receive Date: ? 03/29/2009 ? Provider: ?OBEY P TOD MD ? Copy to: ?ENRIQUE P YOUNG-SOUZA MD ? Specimen/Source: ?Pap Test, Vagina/Cervix/Endo cervix, ThinPrep Imaging ? System with manual evaluation ? Last Menstrual Period: ? 05/08 ? Previous Gynecologic Pathology: ? ASC-US: 12/16/08 & 2006 elsewhere ? HPV: + 12/16/08 elsewhere ? IRVIN I: 77 negative HPV elsewhere ? Treatment History: ? Colposcopy: unable to do bx & ECC elsewhere ? Colposcopy: 01/09 LG changes no discrete lesions ? Other: ? Additional clinical information: 2006 HPV negative elsewhere. ? SPECIMEN ADEQUACY ? Satisfactory for Evaluation ? - transformation zone component present ? GENERAL CATEGORIZATION ? Epithelial Cell Abnormality ? INTERPRETATION ? Squamous Cell Abnormality - Atypical squamous cells, undetermined ? significance (ASC-US). ? EDUCATIONAL NOTES/RECOMMENDATI ONS ? [facility] recommends following the 2006 Consensus Guidelines for the Management of Women with Abnormal Cervical Cancer Screening Tests (JLGTD, ? 2007;11(4):201-222 ). ??Consensus guidelines are available online at ? www.ASCCP.org. ? Document reviewed and electronically signed by: ? ROLANDOWYN MIAN MD [facility] ? Report Date: ??04/02/2009 16:59 ? End of Report ? [facility] 03/27/2009 03/29/2009 Obey Ocasio MD PATHOLOGY ORDERABLES [facility] [address] [place] [address] * SURGICAL PATHOLOGY (09/12/2008 0:00 EST) Pathology Report: SURGICAL PATHOLOGY REPORT ? Reports generated via electronic interface contain original data; ? however they are lacking the format of the original report. ? Caution should be taken when reading/interpreti ng unformatted reports. ? Name: ? EUSEBIO GALICIA ? Accession #: ? [id number] ? : ? 1955 (Age: 52) ??F ? Collect Date: ? 09/12/2008 ? Location: ? [facility] ? Receive Date: ? 09/13/2008 ? Provider: ENRIQUE P YOUNG-SOUZA MD ? Copy to: ? Final Pathologic Diagnosis: ? Endocervix, curettage: ? - Fragments of endocervix and ectocervix with acute and chronic inflammation and reactive changes. ? Comment: ? The biopsy material is limited.The abnormal cells on Pap [id number] don't ?? correlate with the findings in this biopsy. Dr. Eisenberg) ? Document reviewed and electronically signed by: ? ABDELMONEM ELCORRINESSRUBEN MD ? Report ??Date: 09/17/2008 15:21 ? By the signature above, the attending physician certifies that he/she has ? personally conducted a gross and/or microscopic examination of the described ? specimens and rendered or confirmed the above diagnosis. ? Specimen(s) Received: ? ECC ? Clinical History: ? 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 795.01 ? Gross Description: ? Received in formalin labelled [place] and cervical is a 0.6 x 0.6 x 0.2 cm aggregate of blood tinged mucous. ??Filtered and entirely submitted in a ? single cassette. ??(LFlorentin Pineda)/ljn ? End of Report ? [facility] 09/12/2008 09/13/2008 16: 55 EST Enrique Owens MD PATHOLOGY ORDERABLES [facility] [address] [place] [address] * HUMAN PAPILLOMA VIRUS DNA TEST (07/25/2008 10:30 EST) Specimen Description Cervix, ThinPrep vial [facility] Result Positive for one or more of HPV types 16,18,31,33,35 ,39,45,51,52,5 6,58,59, or 68. These high/intermedi ate risk HPV types are associated with dysplasia and some cervical cancers. [facility] Report Status Final 08/09/2008 [facility] 07/25/2008 10:3 0 EST 08/06/2008 10:30 EST Key Mckeon CLOTH INSPECTOR MICROBIOLOGY - G ENERAL ORDERABLES [facility] [address] [place] [address] * CYTOPATHOLOGY (07/25/2008 0:00 EST) Pathology Report: CYTOPATHOLOGY REPORT ? Reports generated via electronic interface contain original data; ? however they are lacking the format of the original report. ? Caution should be taken when reading/interpreti ng unformatted reports. ? Name: ? EUSEBIO GALICIA ? Accession #: ? [id number] ? : ? 1955 (Age: 52) ??F ?Collect Date: ? 07/25/2008 ? Location: ? [facility] ? Receive Date: ? 07/27/2008 ? Provider: ?KEY MCKEON MD ? Copy to: ? Specimen/Source: ?Pap Test, Cervix/Endocervix, ThinPrep Imaging System ? with manual evaluation ? Last Menstrual Period: ? 9/1/08 ? Other: ? HPVA - HPV testing requested if ASC-US on the current ThinPrep Pap test. ? SPECIMEN ADEQUACY ? Satisfactory for Evaluation ? - transformation zone component present ? GENERAL CATEGORIZATION ? Epithelial Cell Abnormality ? INTERPRETATION ? Squamous Cell Abnormality - Atypical squamous cells, undetermined ? significance (ASC-US). ? EDUCATIONAL NOTES/RECOMMENDATI ONS ? [facility] recommends following the 2006 Consensus Guidelines for the Management of Women with Abnormal Cervical Cancer Screening Tests (JLGTD, ? 2007;11(4):201-222 ). ??Consensus guidelines are available online at ? www.ASCCP.org. ? Document reviewed and electronically signed by: ? Segundo D. Plotz, MD ? Report Date: ??08/03/2008 17:22 ? End of Report ? [facility] 07/25/2008 07/27/2008 Key Mckeon CLOTH INSPECTOR PATHOLOGY ANGELICA MAJOR [facility] [address] [place] [address] documented in this encounter Visit Diagnoses Not on filedocumented in this encounter
--- OUTSIDE RECORDS SUMMARY | 2024-05-17 18:52 | XMS_ITS | Encounter Summary ---
Author Organization [facility] Address [address] [place] [address] Care Team Providers Care Business Continuity Analyst Name Role Phone Gia Owens MD Primary Care Provider Encounter Details Date Type Department Care Team (Late st Contact Info) Description 06/17/2010 Results Only [facility] Laboratory Services - [facility] ([facility] [address], [place] [address] Obey Baron MD [address] [place] [address] Social History Tobacco Use Types Packs/Day Years Used Date Smoking Tobacco: Never Assessed Sex and Gender Information Value Date Recorded Sex Assigned at Not on file Gender Identity Not on file Sexual Orientation Not on file documented as of this encounter Plan of Treatment Not on file documented as of this encounter Procedures Procedure Name Priority Date/Time Associated Diagnosis Comments SURGICAL PATHOLOGY Routine 06/17/2010 0:00 EDT documented in this encounter Results * SURGICAL PATHOLOGY (06/17/2010 0:00 EDT) Pathology Report: SURGICAL PATHOLOGY REPORT ? Reports generated via electronic interface contain original data; ? however they are lacking the format of the original report. ? Caution should be taken when reading/interpreti ng unformatted reports. ? Name: ? GRAYSON, EUSEBIO ? Accession #: ? [id number] ? : ? 1955 (Age: 54) ??F ? Collect Date: ? 06/17/2010 ? Location: ? [facility] ? Receive Date: ? 06/18/2010 ? Provider: OBEY BARON MD ? Copy to: GIA OWENS MD ? Final Pathologic Diagnosis: ? Cervix, LOOP electrosurgical excision: ? 1. ?Chronic cervicitis with reactive epithelial changes. ? 2. ? Negative for dysplasia. ? Document reviewed and electronically signed by: ? MARIBEL CLINTON MD ? Report ??Date: 06/20/2010 13:26 ? By the signature above, the attending physician certifies that he/she has ? personally conducted a gross and/or microscopic examination of the described ? specimens and rendered or confirmed the above diagnosis. ? Specimen(s) Received: ? Cervical biopsy ? Clinical History: ? IRVIN I (+) high risk HPV, LMP: 2 yrs ? Gross Description: ? Received in formalin labelled Eusebio Bravo and cervical biopsy is an irregular portion of cervix with an incomplete, slit-like os measuring 1.7 x 1.4 cm and is excised to a depth of 0.6 cm. ??The cervical mucosa is stovall-white ?? and smooth with multiple punctate, hemorrhagic areas near the os. ??Separately ?? received in the specimen container is an irregular piece of ectocervix that ? measures 2.1 x 0.2 cm and is excised to a depth of 0.9 cm. ??The fragment has ? stovall-white, smooth mucosa with pinpoint hemorrhages. ??The surgical margin of the portion of cervix with os is inked blue for endocervix and black for ectocervix. The surgical resection margin of ectocervix is inked black. ??The specimen of ?? cervix with os is serially sectioned and entirely submitted as (A1) through (A3) and the section of ectocervix is serially sectioned and entirely submitted as ?? (A4) and (A5). (Akil Medina)/[facility] ? End of Report ? [facility] 06/17/2010 06/18/2010 8:2 6 EDT Obey Baron MD PATHOLOGY ORDERABLES [facility] [address] [place] [address] documented in this encounter Visit Diagnoses Not on filedocumented in this encounter Care Teams Business Continuity Analyst Relationship Specialty Start Date End Date Chadwick-Gia Vargas MD [address] [address] [place] [address] PCP - General 09/20/09 documented as of this encounter
--- OUTSIDE RECORDS SUMMARY | 2024-05-17 18:52 | XMS_ITS | Encounter Summary ---
Author Organization [facility] Address [address] [place] [address] Care Team Providers Care Smoking Tobacco Packer Hand Name Role Phone Gia Owens MD Primary Care Provider Encounter Details Date Type Department Care Team (Late st Contact Info) Description 05/14/2006 Results Only [facility] [address] [place] [address] Ángel Bocanegra ARNP [address] [place] [address] Social History Tobacco Use Types Packs/Day Years Used Date Smoking Tobacco: Never Assessed Sex and Gender Information Value Date Recorded Sex Assigned at Not on file Gender Identity Not on file Sexual Orientation Not on file documented as of this encounter Plan of Treatment Not on file documented as of this encounter Procedures Procedure Name Priority Date/Time Associated Diagnosis Comments CYTOPATHOLOGY Routine 05/14/2006 0:00 EDT documented in this encounter Results * CYTOPATHOLOGY (05/14/2006 0:00 EDT) Pathology Report: CYTOPATHOLOGY REPORT Reports generated via electronic interface contain original data; however they are lacking the format of the original report. Caution should be taken when reading/interpreti ng unformatted reports. Name: ? EUSEBIO GALICIA ? Accession #: ? [id number] : ? 1955 (Age: 50) ??F ?Collect Date: ? 05/14/2006 Location: ? [facility] ? Receive Date: ? 05/19/2006 Provider: ?ÁNGEL MANN Copy to: ? Specimen/Source: ?ThinPrep Pap Test, Cervix/Endocervix, processed on [employer] ThinPrep Imaging System, with manual evaluation Last Menstrual Period: ? 05/04/06 Hormonal/Contracep tive Status: ? Yes Other: ? Additional clinical information: Negative for intraepithelial lesion or malignancy (NILM) 03/20/05. Previous atypical. HPVA - HPV testing requested if ASC-US on the current ThinPrep Pap test. ? SPECIMEN ADEQUACY ? Satisfactory for Evaluation - transformation zone component present GENERAL CATEGORIZATION ? Epithelial Cell Abnormality INTERPRETATION ? Squamous Cell Abnormality - Atypical squamous cells, undetermined significance. EDUCATIONAL NOTES/RECOMMENDATI ONS ? [facility] recommends following the 2001 Consensus Guidelines for the Management of Women with Cervical Cytological Abnormalities (MAYA,2002;287:212 0-9). Management algorithms have been distributed by [facility] and are available online at www.ASCCP.org. ? Document reviewed and electronically signed by: ? SHAKEEL MIMS MD ? Report Date: ??05/25/2006 15:29 End of Report [facility] 05/14/2006 05/19/2006 Ángel MANN PATHOLOGY ORDERAB LES [facility] [address] [place] [address] documented in this encounter Visit Diagnoses Not on filedocumented in this encounter Care Teams Smoking Tobacco Packer Hand Relationship Specialty Start Date End Date Gia Owens MD [address] [place] [address] PCP - General 09/20/09 documented as of this encounter
--- OUTSIDE RECORDS SUMMARY | 2024-05-17 18:52 | XMS_ITS | Encounter Summary ---
Author Organization [facility] Address [address] [place] [address] Care Team Providers Care Production Dispatcher Name Role Phone Gia Owens MD Primary Care Provider [phone] Encounter Details Date Type Department Care Team (Late st Contact Info) Description 05/04/2024 Lab Requisition [facility] Pathology & Laboratory Medicine - [facility] [address] [place] [address] Sumi Caal MD [address] [place] [phone] Encounter for other general examination Social History Tobacco Use Types Packs/Day Years Used Date Smoking Tobacco: Never Assessed Sex and Gender Information Value Date Recorded Sex Assigned at Not on file Gender Identity Not on file Sexual Orientation Not on file documented as of this encounter Plan of Treatment Not on file documented as of this encounter Procedures Procedure Name Priority Date/Time Associated Diagnosis Comments PAP TEST Today 05/03/2024 16:00 EDT Encounter for other general examination HPV DNA DETECTION WITH GENOTYPING, PCR Today 05/03/2024 16:00 EDT Encounter for other general examination documented in this encounter Results * (ABNORMAL) HPV DNA DETECTION WITH GENOTYPING, PCR (05/03/2024 16:00 EDT) HPV High Risk type 16, PCR Negative Negative 05/15/2024 15:16 EDT [facility] HPV High Risk type 18, PCR Negative Negative 05/15/2024 15:16 EDT [facility] HPV other High Risk types, PCR Positive(A) Negative 05/15/2024 15:16 [facility] Comment: Positive for one of the following Other High Risk HPV types: ??31,33, 35, 39, 45, 51, 52, 56, 58, 59, 66 and 68. Pap Test CERVIX UTERI STRUCTURE / Unknown 05/03/2024 16:00 EDT 05/12/2024 14:26 EDT Sumi Caal MD MICROBIOLOGY - GENER AL ORDERABLES [facility] [address] [place] [address] * PAP TEST (05/03/2024 16:00 EDT) Specimens A. Cervix and/or Endocervix , ThinPrep Imaging System with Manual Evaluation 05/15/2024 15:16 [facility] Specimen Adequacy Satisfactory for Evaluation - assessment of transformation zone component not applicable ( e.g. atrophy, vaginal sample, hysterectomy) Scant squamous epithelial component due to excess inflammation. 05/15/2024 15:16 [facility] General Categorization Negative for intraepithelial lesion or malignancy 05/15/2024 15:16 [facility] Attestation . 05/15/2024 15:16 [facility] at 1516 Clinical History See below 05/15/20 24 15:16 [facility] Performing Lab [facility] 05/15/2024 15:16 [facility] Scanned Images 05/15/2024 15:16 [facility] HPV High Risk type 16, PCR Negative 05/15/2024 15:16 [facility] HPV High Risk type 18, PCR Negative 05/15/2024 15:16 [facility] HPV Other High Risk Types, PCR Positive Positive for one of the following Other High Risk HPV types: 31,33, 35, 39, 45, 51, 52, 56, 58, 59, 66 and 68. 05/15/2024 15:16 EDT [facility] Pap Test CERVIX UTERI STRUCTURE / Unknown 05/03/2024 16:00 EDT 05/04/2024 10:04 EDT Sumi Caal MD PATHOLOGY ORDERABLES [facility] [address] [place] [address] documented in this encounter Visit Diagnoses Diagnosis Encounter for other general examination documented in this encounter Care Teams Production Dispatcher Relationship Specialty Start Date End Date Gia Owens MD [address],[facility] 3 [place] [address] PCP - General 09/20/09 documented as of this encounter
--- OUTSIDE RECORDS SUMMARY | 2024-05-17 18:52 | XMS_ITS | Encounter Summary ---
Author Organization [facility] Address [address] [place] [address] Care Team Providers Care First Aid Teacher Name Role Phone Gia Owens MD Primary Care Provider Encounter Details Date Type Department Care Team (Late st Contact Info) Description 10/22/2022 Lab Requisition [facility] Pathology & Laboratory Medicine - [facility] [address] [place] [address] Sumi Caal MD [address] [place] [phone] Encounter for other general examination Social [...] Date/Time Associated Diagnosis Comments PAP TEST Today 10/21/2022 16:00 EST Encounter for other general examination HPV GENOTYPES 16 AND 18/45 Today 10/21/2022 16:00 EST Encounter for other general examination HPV DNA DETECTION WITH GENOTYPING, PCR Today 10/21/2022 16:00 EST Encounter for other general examination documented in this encounter Results * HPV GENOTYPES 16 AND 18/45 (10/21/2022 16:00 EST) HPV High Risk type 16, PCR Negative Negative 11/10/2022 15:57 EDT [facility] HPV18/45 RNA (HPV18/45) Negative Negative 11/10/2022 15:57 EDT [facility] Papanicolaou smear specimen (specimen) CERVIX UTERI STRUCTURE / Unknown 10/21/2022 16:00 EST 11/03/2022 14:37 EST Sumi Caal MD MICROBIOLOGY - GENER AL ORDERABLES Performing Organization Address [facility] de Phone Number [facility] [address] [place] [address] * (ABNORMAL) HUMAN PAPILLOMAVIRUS (HPV) DETECTION-HIGH RISK TYPES (10/21/2022 16:00 EST) HPV other High Risk types, PCR Positive( A) Negative 11/05/2022 15:31 EST [facility] Comment:E6 OR E7 mRNA from o ne or more types of HPV types 16,18,31,33,35,39,45,51,52,56,58,59,66, and 68 is detected by felt hat pouncing operator hand mediated amplification. High and intermediate risk HPV types are associated with most squamous intraepithelial lesions and cervical cancers. Papanicolaou smear specimen (specimen) CERVIX UTERI STRUCTURE / Unknown 10/21/2022 16:00 EST 11/03/2022 14:37 EST Sumi Caal MD MICROBIOLOGY - GENER AL ORDERABLES Performing Organization Address [facility] de Phone Number [facility] [address] [place] [address] * PAP TEST (10/21/2022 16:00 EST) Specimens A. Cervix and/or Endocervix , ThinPrep Imaging System with Manual Evaluation 11/10/2022 15:57 EDT [facility] Specimen Adequacy Satisfactory for Evaluation - assessment of transformation zone component not applicable ( e.g. atrophy, vaginal sample, hysterectomy) 11/10/2022 15:57 EDT [facility] General Categorization Negative for intraepithelial lesion or malignancy 11/10/2022 15:57 EDT [facility] Attestation . 11/10/2022 15:57 EDT [facility] at 1557 Clinical History See below 11/11/19 15:57 EDT [facility] HPV The result for the Human Papillomavirus (HPV) Detection-High Risk Types is Positive . E6 OR E7 mRNA from one or more types of HPV types 16,18,31,33,35,39 ,45,51,52,56,58,5 9,66, and 68 is detected by felt hat pouncing operator hand mediated amplification. High and intermediate risk HPV types are associated with most squamous intraepithelial lesions and cervical cancers. Testing was performed on specimen [id number] and was resulted on 11/05/2022 1531 EST by FLORENCIO, LAB INSTRUMENT RESULTS IN 11/10/2022 15:57 EDT [facility] Genotyping 16 & 18/45 The results for the HPV Genotypes 16 and 18/45 are Negative for the HPV16 RNA and Negative for the HPV18/45 RNA (HPV18/45). Testing was performed on specimen [id number] and was resulted on 11/10/2022 1557 EDT by FLORENCIO, LAB INSTRUMENT RESULTS IN 11/10/2022 15:57 EDT [facility] Performing Lab [facility] 11/10/2022 15:57 EDT [facility] Scanned Images 11/10/2022 15:57 EDT [facility] Papanicolaou smear specimen (specimen) CERVIX UTERI STRUCTURE / Unknown 10/21/2022 16:00 EST 10/22/2022 11:45 EST Sumi Caal MD PATHOLOGY ORDERABLES [facility] [address] [place] [address] documented in this encounter Visit Diagnoses Diagnosis Encounter for other general examination documented in this encounter Care Teams First Aid Teacher Relationship Specialty Start Date End Date Chadwick-Gia Vargas MD [address] [facility] 3 [place] [address] PCP - General 09/20/09 documented as of this encounter
--- OUTSIDE RECORDS SUMMARY | 2024-05-17 18:52 | XMS_ITS | Referral Summary ---
Author Organization [facility] Address [address] [place] [address] Care Team Providers Care Community Manager Name Role Phone Gia Owens MD Primary Care Provider Encounters Date Type Department Care Team Description 05/04/2024 Lab Requisition [facility] Pathology & Laboratory Medicine - [facility] [address] [place] [address] Sumi Caal MD Encounter for other general examination from Last 3 Months Social History Tobacco Use Types Packs/Day Years Used Date Smoking Tobacco: Never Assessed Sex and Gender Information Value Date Recorded Sex Assigned at Not on file Gender Identity Not on file Sexual Orientation Not on file Plan of Treatment Not on file Procedures Procedure Name Priority Date/Time Associated Diagnosis Comments PAP TEST Today 05/03/2024 16:00 EDT Encounter for other general examination HPV DNA DETECTION WITH GENOTYPING, PCR Today 05/03/2024 16:00 EDT Encounter for other general examination from Last 3 Months Results * PAP TEST (05/03/2024 16:00 EDT) Specimens A. Cervix and/or Endocervix , ThinPrep Imaging System with Manual Evaluation 05/15/2024 15:16 EDT [facility] Specimen Adequacy Satisfactory for Evaluation - assessment of transformation zone component not applicable ( e.g. atrophy, vaginal sample, hysterectomy) Scant squamous epithelial component due to excess inflammation. 05/15/2024 15:16 EDT [facility] General Categorization Negative for intraepithelial lesion or malignancy 05/15/2024 15:16 T [facility] Attestation . 05/15/2024 15:16 [facility] at 1516 Clinical History See below 05/15/20 15:16 T [facility] Performing Lab [facility] 05/15/2024 15:16 T [facility] Scanned Images 05/15/2024 15:16 EDT [facility] HPV High Risk type 16, PCR Negative 05/15/2024 15:16 EDT [facility] HPV High Risk type 18, PCR Negative 05/15/2024 15:16 T [facility] HPV Other High Risk Types, PCR Positive Positive for one of the following Other High Risk HPV types: 31,33, 35, 39, 45, 51, 52, 56, 58, 59, 66 and 68. 05/15/2024 15:16 T [facility] Pap Test CERVIX UTERI STRUCTURE / Unknown 05/03/2024 16:00 EDT 05/04/2024 10:04 EDT Sumi Caal MD PATHOLOGY ORDERABLES [facility] [address] [place] [id number] * (ABNORMAL) HPV DNA DETECTION WITH GENOTYPING, PCR (05/03/2024 16:00 EDT) HPV High Risk type 16, PCR Negative Negative 05/15/2024 15:16 EDT [facility] HPV High Risk type 18, PCR Negative Negative 05/15/2024 15:16 T [facility] HPV other High Risk types, PCR Positive(A) Negative 05/15/2024 15:16 T [facility] Comment: Positive for one of the following Other High Risk HPV types: ??31,33, 35, 39, 45, 51, 52, 56, 58, 59, 66 and 68. Pap Test CERVIX UTERI STRUCTURE / Unknown 05/03/2024 16:00 EDT 05/12/2024 14:26 EDT Sumi Caal MD MICROBIOLOGY - GENER AL ORDERABLES [facility] [address] [place] [address] from Last 3 Months Care Teams Community Manager Relationship Specialty Start Date End Date Chadwick-Gia Vargas MD [address],[facility] 3 [place] [address] PCP - General 09/20/09
--- OUTSIDE RECORDS SUMMARY | 2024-05-17 18:52 | XMS_ITS | Encounter Summary ---
Author Organization [facility] Address [address] [place] [address] Care Team Providers Care Slasher Hand Name Role Phone Gia Owens MD Primary Care Provider [phone] Encounter Details Date Type Department Care Team (Late st Contact Info) Description 01/07/2011 Results Only [facility] Laboratory Services - [facility] ([facility]) [address] [place] [phone] Amalia Moya ARNP [address] [place] [address] Social History Tobacco Use Types Packs/Day Years [...] Diagnosis Comments PAP TEST- RESULT ONLY Routine 01/07/2011 0:00 EDT documented in this encounter Results * PAP TEST- RESULT ONLY (01/07/2011 0:00 EDT) Pathology Report: CYTOPATHOLOGY REPORT ? Reports generated via electronic interface contain original data; ? however they are lacking the format of the original report. ? Caution should be taken when reading/interpreti ng unformatted reports. ? Name: ? EUSEBIO GALICIA ? Accession #: ? [id number] ? : ? 1955 (Age: 55) ??F ?Collect Date: ? 01/07/2011 ? Location: ? [facility] ? Receive Date: ? 01/09/2011 ? Provider: ?AMALIA MANN ? Copy to: ?GIA OWENS MD ? Specimen/Source: ?Pap Test, Vagina/Cervix/Endo cervix, ThinPrep Imaging ? System with manual evaluation ? Last Menstrual Period: ? 2 YR ? Previous Gynecologic Pathology: ? ASC-US: H/O 08/06, 2006, 03/07, 08/2009 ? HPV: + 12/08 elsewhere ? IRVIN I: 1979 ? Treatment History: ? Colposcopy: unable to BX + ECC, 09/07 LG changes no discrete lesions ? Other: ? Additional clinical information: NEG hpv 1979, 2006 ? SPECIMEN ADEQUACY ? Satisfactory for Evaluation ? - transformation zone component present ? GENERAL CATEGORIZATION ? Negative for Intraepithelial Lesion or Malignancy ? Document reviewed and electronically signed by: ? Donato Gray CT(ASCP) ? Report Date: ??01/14/2011 13:02 ? End of Report ? [facility] 01/07/2011 01/09/2011 Amalia MANN PATHOLOGY ORDERABL ES [facility] [address] [place] [address] documented in this encounter Visit Diagnoses Not on filedocumented in this encounter Care Teams Slasher Hand Relationship Specialty Start Date End Date Gia Owens MD [address],[place] [id number] PCP - General 09/20/09 documented as of this encounter
--- OUTSIDE RECORDS SUMMARY | 2024-05-17 18:52 | XMS_ITS | Encounter Summary ---
Author Organization [facility] Address [address] [place] [address] Care Team Providers Care Biological Engineer Name Role Phone Gia Owens MD Primary Care Provider Encounter Details Date Type Department Care Team (Late st Contact Info) Description 07/08/2011 Results Only [facility] Laboratory Services - [facility] ([facility]) [address] [place] [address] Amalia Moya ARNP [address] [place] [address] Social History Tobacco Use Types Packs/Day Years [...] Diagnosis Comments PAP TEST- RESULT ONLY Routine 07/08/2011 0:00 EST documented in this encounter Results * PAP TEST- RESULT ONLY (07/08/2011 0:00 EST) Pathology Report: CYTOPATHOLOGY REPORT Reports generated via electronic interface contain original data; however they are lacking the format of the original report. Caution should be taken when reading/interpreti ng unformatted reports. Name: ? EUSEBIO GALICIA ? Accession #: ? [id number] : ? 1955 (Age: 55) ??F ?Collect Date: ? 07/08/2011 Location: ? [facility] ? Receive Date: ? 07/10/2011 Provider: ?AMALIA MANN Copy to: ?GIA OWENS MD ? Specimen/Source: ?Pap Test, Vagina/Cervix/Endo cervix, ThinPrep Imaging System with manual evaluation Last Menstrual Period: ? Previous Gynecologic Pathology: ? IRVIN I: H/O 1978 negative HPV: 1978, HPV-2005, HPV + 08/06 elsewhere ASC-US: 2005, 08/06, 03/07, 09/08 Treatment History: ? Colposcopy: unable to do bx, 09/07 Colpo - LG changes no discrete lesions Miscellaneous treatment: ECC + ? SPECIMEN ADEQUACY ? Satisfactory for Evaluation - assessment of transformation zone component not applicable ( e.g. atrophy, vaginal sample, hysterectomy) - scant squamous epithelial component secondary to excessive inflammation GENERAL CATEGORIZATION ? Negative for Intraepithelial Lesion or Malignancy ? Document reviewed and electronically signed by: ? ANGELIKA Lai(ASCP) ? Report Date: ??07/16/2011 14:42 End of Report [facility] 07/08/2011 07/10/2011 Amalia MANN PATHOLOGY ORDERABL ES [facility] [address] [place] [address] documented in this encounter Visit Diagnoses Not on filedocumented in this encounter Care Teams Biological Engineer Relationship Specialty Start Date End Date Gia Owens MD [address],[facility] [address] [place] [address] PCP - General 09/20/09 documented as of this encounter
--- OUTSIDE RECORDS SUMMARY | 2024-05-17 18:52 | XMS_ITS | Encounter Summary ---
Author Organization [facility] Address [address] [place] [address] Care Team Providers Care Skein Winder Name Role Phone Gia Owens MD Primary Care Provider Encounter Details Date Type Department Care Team (Late st Contact Info) Description 04/16/2010 Results Only [facility] Laboratory Services - [facility] ([facility]) [address] [place] [address] Amalia Moya ARNP [address] [place] [address] Social History Tobacco Use Types Packs/Day Years Used Date Smoking Tobacco: Never Assessed Sex and Gender Information Value Date Recorded Sex Assigned at Not on file Gender Identity Not on file Sexual Orientation Not on file documented as of this encounter Plan of Treatment Not on file documented as of this encounter Procedures Procedure Name Priority Date/Time Associated Diagnosis Comments HPV DETECTION, HIGH RISK TYPES Routine 04/16/2010 8:38 EDT CYTOPATHOLOGY Routine 04/16/2010 0:00 EDT documented in this encounter Results * HUMAN PAPILLOMA VIRUS DNA TEST (04/16/2010 8:38 EDT) Specimen Description Cervix, ThinPrep vial [facility] Result Positive for one or more of HPV types 16,18,31,33,35 ,39,45,51,52,5 6,58,59, or 68. These high/intermedi ate risk HPV types are associated with dysplasia and some cervical cancers. [facility] Report Status Final 04/30/2010 [facility] 04/16/2010 8:38 EDT 04/28/2010 8:38 EDT Amalia MANN MICROBIOLOGY - GEN ERAL ORDERABLES [facility] [address] [place] [address] * CYTOPATHOLOGY (04/16/2010 0:00 EDT) Pathology Report: CYTOPATHOLOGY REPORT ? Reports generated via electronic interface contain original data; ? however they are lacking the format of the original report. ? Caution should be taken when reading/interpreti ng unformatted reports. ? Name: ? EUSEBIO GALICIA ? Accession #: ? [id number] ? : ? 1955 (Age: 54) ??F ?Collect Date: ? 04/16/2010 ? Location: ? [facility] ? Receive Date: ? 04/18/2010 ? Provider: ?AMALIA ROBLESER NEWSPAPER DELIVERY COUNSELOR ? Copy to: ?GIA P YOUNG-VARGAS MD ? Specimen/Source: ?Pap Test, Vagina/Cervix/Endo cervix, ThinPrep Imaging ? System with manual evaluation ? Last Menstrual Period: ? 2 yr. ? Previous Gynecologic Pathology: ? ASC-US: H/o 12/08 (elsewhere) ? HPV: + 12/08 H/o (elsewhere) ? IRVIN I: 79 negative HPV ? ASC-US: 06 HPV negative ? LSIL: 01/09 ? ASC-US: 07/09 & 01/10 ? Treatment History: ? Colposcopy: unable to do bx ? Miscellaneous treatment: + ECC ? Colposcopy: LG changes no discrete lesions 01/09 ? Other: ? HPVDX - HPV testing requested regardless of diagnosis on current ThinPrep Pap ?? test. ? SPECIMEN ADEQUACY ? Satisfactory for Evaluation ? - transformation zone component present ? GENERAL CATEGORIZATION ? Epithelial Cell Abnormality ? INTERPRETATION ? Squamous Cell Abnormality - Low grade squamous intraepithelial lesion ? (LSIL). ? EDUCATIONAL NOTES/RECOMMENDATI ONS ? FA recommends following the 2006 Consensus Guidelines for the Management of Women with Abnormal Cervical Cancer Screening Tests (JLGTD, ? 2007;11(4):201-222 ). ??Consensus guidelines are available online at ? www.ASCCP.org. ? Document reviewed and electronically signed by: ? Sharonda Gomez MD ? Report Date: ??04/25/2010 12:42 ? End of Report ? [facility] 04/16/2010 04/18/2010 Amalia MANN PATHOLOGY ORDERABL ES [facility] [address] [place] [address] documented in this encounter Visit Diagnoses Not on filedocumented in this encounter Care Teams Skein Winder Relationship Specialty Start Date End Date Chadwick-Gia Vargas MD [address],[place] [phone] PCP - General 09/20/09 documented as of this encounter
--- OUTSIDE RECORDS SUMMARY | 2024-05-17 18:52 | XMS_ITS | Encounter Summary ---
Author Organization [facility] Address [address] [place] [address] Care Team Providers Care Brine Tank Tender Name Role Phone Gia Owens MD Primary Care Provider Encounter Details Date Type Department Care Team (Late st Contact Info) Description 03/18/2020 Lab Requisition [facility] Pathology & Laboratory Medicine - [address] [address] Outr Resulting Lab, Provider Social History Tobacco Use Types Packs/Day Years Used Date Smoking Tobacco: Never Assessed Sex and Gender Information Value Date Recorded Sex Assigned at Not on file Gender Identity Not on file Sexual Orientation Not on file documented as of this encounter Plan of Treatment Not on file documented as of this encounter Procedures Procedure Name Priority Date/Time Associated Diagnosis Comments LYME AB Routine 03/18/2020 7:45 EDT documented in this encounter Results * LYME AB (03/18/2020 7:45 EDT) Lyme Ab Negative Negative 03/19/2020 10:34 EDT [facility] Comment: New 3rd generation assay in use 02/07/2020 Blood VENOUS BLOOD / Unknown 03/18/2020 7:45 EDT 03/18/2020 15:43 EDT Provider Outr Resulting Lab IMMUNOLOGY A ND SEROLOGY ORDERABLES [facility] [address] [place] [address] documented in this encounter Visit Diagnoses Not on filedocumented in this encounter Care Teams Brine Tank Tender Relationship Specialty Start Date End Date Gia Owens MD [address],[facility] 3 [place] [address] PCP - General 09/20/09 documented as of this encounter
--- OUTSIDE RECORDS SUMMARY | 2024-05-17 18:52 | XMS_ITS | Encounter Summary ---
Author Organization [facility] Address [address] [place] [address] Care Team Providers Care Gis Database Administrator Name Role Phone Gia Owens MD Primary Care Provider Encounter Details Date Type Department Care Team (Late st Contact Info) Description 07/25/2013 Results Only [facility] [place] [phone] Rex Bartholomew MD [address] [place] [address] [address] [place], [place] [id number] Social History Tobacco Use Types Packs/Day Years [...] Diagnosis Comments PAP TEST- RESULT ONLY Routine 07/25/2013 0:00 EST documented in this encounter Results * PAP TEST- RESULT ONLY (07/25/2013 0:00 EST) Pathology Report: CYTOPATHOLOGY REPORT Reports generated via electronic interface contain original data; however they are lacking the format of the original report. Caution should be taken when reading/interpreti ng unformatted reports. Name: ? EUSEBIO GALICIA ? Accession #: ? [id number] ? : ? 1955 (Age: 57) ??F ?Collect Date: ? 07/25/2013 ? Location: ? [facility] ? Receive Date: ? 07/26/2013 ? Provider: REX BARTHOLOMEW MD Copy to: KRISTY ABEL HUMAN RESOURCES CONSULTANT ? Final Report SPECIMEN ADEQUACY ? Satisfactory for Evaluation - transformation zone component present GENERAL CATEGORIZATION ? Negative for Intraepithelial Lesion or Malignancy ?? Previous Gynecologic Pathology: IRVIN I HPV: + hr Treatment History: LEEP: S/P Other: Additional clinical information: 2011 PAP NEG Specimen/Source: ??Pap Test, Cervix/Endocervix, ThinPrep Imaging System with manual evaluation Document reviewed and electronically signed by: ? Shirley Silveira, CT(ASCP) ? Report ??Date: 08/01/2013 15:54 HPV with Pap Test ? Date Ordered: ? 08/01/2013 ? Status: ?? Signed Out ?Date Complete: ? 08/03/2013 ? By: ??System Interface ? Date Reported: ? 08/03/2013 ? Interpretation RESULT: Negative for HPV. No E6 or E7 mRNA is detected from HPV types 16,18,31,33,35, 39,45,51,52,56,58, 59,66, and 68 by trap setter mediated amplification. Comments Document reviewed and electronically signed by: ? System Interface ? Report date: 08/03/2013 By the signature above, the attending physician certifies that he/she has personally conducted a gross and/or microscopic examination of the described specimens and rendered or confirmed the above diagnosis. End of Report [facility] 07/25/2013 07/26/2013 Rex Bartholomew MD [place] [address] documented in this encounter Visit Diagnoses Not on filedocumented in this encounter Care Teams Gis Database Administrator Relationship Specialty Start Date End Date Gia Owens MD [address],[facility] [address] [place] [address] PCP - General 09/20/09 documented as of this encounter
--- OUTSIDE RECORDS SUMMARY | 2024-05-17 18:52 | XMS_ITS | Encounter Summary ---
Author Organization [facility] Address [address] [place] [address] Care Team Providers Care Internal Medicine Nurse Name Role Phone Gia Owens MD Primary Care Provider Encounter Details Date Type Department Care Team (Late st Contact Info) Description 09/27/2017 Results Only [facility] [phone] Tsering Peralta APRN [address] [place], [place] [id number] Social History Tobacco Use Types Packs/Day Years [...] Diagnosis Comments PAP TEST- RESULT ONLY Routine 09/27/2017 0:00 EST documented in this encounter Results * PAP TEST- RESULT ONLY (09/27/2017 0:00 EST) Pathology Report: CYTOPATHOLOGY REPORT Reports generated via electronic interface contain original data; however they are lacking the format of the original report. Caution should be taken when reading/interpreti ng unformatted reports. Name: ? EUSEBIO GALICIA ? Accession #: ? [id number] ? : ? 1955 (Age: 61) ??F ?Collect Date: ? 09/27/2017 ? Location: ? [facility] ? Receive Date: ? 09/28/2017 ? Provider: TSERING PERALTA APRN Copy to: ? Final Report SPECIMEN ADEQUACY ? Satisfactory for Evaluation - assessment of transformation zone component not applicable ( e.g. atrophy, vaginal sample, hysterectomy) GENERAL CATEGORIZATION ? Negative for Intraepithelial Lesion or Malignancy ?? Menstrual/Pregnanc y Status: ??Post Menopausal Specimen/Source: ??Pap Test, Cervix, ThinPrep Imaging System with manual evaluation Document reviewed and electronically signed by: ? ANGELIKA Singer(ASCP) ? Report ??Date: 10/05/2017 12:58 HPV with Pap Test ? Date Ordered: ? 10/05/2017 ? Status: ?? Signed Out ?Date Complete: ? 10/06/2017 ? By: ??System Interface ? Date Reported: ? 10/06/2017 ? Interpretation RESULT: Negative for HPV. No E6 or E7 mRNA is detected from HPV types 16,18,31,33,35, 39,45,51,52,56,58, 59,66, and 68 by washhouse hand mediated amplification. Comments Document reviewed and electronically signed by: ? System Interface ? Report date: 10/06/2017 By the signature above, the attending physician certifies that he/she has personally conducted a gross and/or microscopic examination of the described specimens and rendered or confirmed the above diagnosis. End of Report [facility] 09/27/2017 09/28/2017 Tsering Peralta APRN PATHOLOGY ORDERABLES [facility] [address] [place] [address] documented in this encounter Visit Diagnoses Not on filedocumented in this encounter Care Teams Internal Medicine Nurse Relationship Specialty Start Date End Date Gia Owens MD [address],[facility] [address] [place] [address] PCP - General 09/20/09 documented as of this encounter
--- OUTSIDE RECORDS SUMMARY | 2024-05-17 18:52 | XMS_ITS | Clinical Summary ---
Author Organization [facility] Address [address] [place] [address] Care Team Providers Care Csr Technician Name Role Phone Gia Owens MD Primary Care Provider Encounters Date Type Department Care Team Description 05/04/2024 Lab Requisition [facility] Pathology & Laboratory Medicine - [facility] [address] [place] [address] Sumi Caal MD Encounter for other general examination from Last 3 Months Social History Tobacco Use Types Packs/Day Years Used Date Smoking Tobacco: Never Assessed Sex and Gender Information Value Date Recorded Sex Assigned at Not on file Gender Identity Not on file Sexual Orientation Not on file Plan of Treatment Health Maintenance Due Date Last Done Comments Hepatitis C Screen 1955 RSV Immunization ( o r 60+ Years) (1 - 1-dose 60+ series) 2017 Fall Risk Screening 2022 COVID-19 Vaccine (2022-24 season) 2024 Procedures Procedure Name Priority Date/Time Associated Diagnosis Comments PAP TEST Today 05/03/2024 16:00 EDT Encounter for other general examination HPV DNA DETECTION WITH GENOTYPING, PCR Today 05/03/2024 16:00 EDT Encounter for other general examination from Last 3 Months Results * PAP TEST (05/03/2024 16:00 EDT) Specimens A. Cervix and/or Endocervix , ThinPrep Imaging System with Manual Evaluation 05/15/2024 15:16 EDT [facility] Specimen Adequacy Satisfactory for Evaluation - assessment of transformation zone component not applicable ( e.g. atrophy, vaginal sample, hysterectomy) Scant squamous epithelial component due to excess inflammation. 05/15/2024 15:16 EDT [facility] General Categorization Negative for intraepithelial lesion or malignancy 05/15/2024 15:16 [facility] Attestation . 05/15/2024 15:16 [facility] at 1516 Clinical History See below 05/15/20 15:16 T [facility] Performing Lab [facility] 05/15/2024 15:16 [facility] Scanned Images 05/15/2024 15:16 [facility] HPV High Risk type 16, PCR Negative 05/15/2024 15:16 [facility] HPV High Risk type 18, PCR Negative 05/15/2024 15:16 [facility] HPV Other High Risk Types, PCR Positive Positive for one of the following Other High Risk HPV types: 31,33, 35, 39, 45, 51, 52, 56, 58, 59, 66 and 68. 05/15/2024 15:16 [facility] Pap Test CERVIX UTERI STRUCTURE / Unknown 05/03/2024 16:00 EDT 05/04/2024 10:04 EDT Sumi Caal MD PATHOLOGY ORDERABLES [facility] [address] [place] [phone] * (ABNORMAL) HPV DNA DETECTION WITH GENOTYPING, PCR (05/03/2024 16:00 EDT) HPV High Risk type 16, PCR Negative Negative 05/15/2024 15:16 [facility] HPV High Risk type 18, PCR Negative Negative 05/15/2024 15:16 [facility] HPV other High Risk types, PCR Positive(A) Negative 05/15/2024 15:16 [facility] Comment: Positive for one of the following Other High Risk HPV types: ??31,33, 35, 39, 45, 51, 52, 56, 58, 59, 66 and 68. Pap Test CERVIX UTERI STRUCTURE / Unknown 05/03/2024 16:00 EDT 05/12/2024 14:26 EDT Sumi Caal MD MICROBIOLOGY - GENER AL ORDERABLES [facility] [address] [place] [address] from Last 3 Months Care Teams Csr Technician Relationship Specialty Start Date End Date Chadwick-Gia Vargas MD [address] [facility],[address] [address] PCP - General 09/20/09
[2024-05-17 19:55] LABS: Abs Immature Grans 0.02 10^3/uL (0.0-0.06); Absolute Basophil Count 0.06 10^3/uL (0.0-0.2); Absolute Eosinophil Count 0.21 10^3/uL (0.0-0.7); Absolute Lymphocyte Count 2.04 10^3/uL (1.2-3.4); Absolute Monocyte Count 0.58 10^3/uL (0.1-0.8); Absolute Neutrophil Count 3.51 10^3/uL (1.2-6.7); Basophils % 0.9 %; Eosinophils % 3.3 %; HCT 37.2 % (36.0-46.0); HGB 11.6 g/dL (11.2-15.7); Immature Grans % 0.3 %; Lymphocytes % 31.8 %; MCH 26.5 pg (27.0-33.0); MCHC 31.2 % (32.0-36.0); MCV 85 fL (80-95); MPV 10.8 fL (8.0-11.0); Neutrophils % 54.7 %; Platelet Count 347 10^3/uL (130-400); RBC 4.38 10^6/uL (3.93-5.22); RDW 13.8 % (11.7-14.6); RDW-SD 42.9 fL; WBC 6.42 10^3/uL (4.4-10.8)
[2024-05-17 20:36] LABS: Anion Gap 12.5 mmol/L (3-11); BUN 21 mg/dL (7-18); CO2 24.5 mmol/L (21.0-32.0); Calculated LDL 123 mg/dL (<100); Chloride 107 mmol/L (98-107); Cholesterol 218 mg/dL (<200); Estimated GFR 62.13 (mL/min/1.73m2); Glucose 110 mg/dL (74-106); HDL Cholesterol 61 mg/dL (40-60); Potassium 4.1 mmol/L (3.5-5.1); Sodium 144 mmol/L (136-145); Triglyceride 170 mg/dL (<150); Vitamin B12 637 pg/mL (193-986)
== END 2024-05-17 18:43 | disposition home or self-care (01) ==
LOC: NCHCN 18:42
PROVIDERS: PCP Nurse Practitioner; Visit Provider Student in an Organized Health Care Education/Training Program
DX: I10 Essential (primary) hypertension (principal)
CPT/HCPCS: 80048; 80061; 82607; 83735; 85025

== ENCOUNTER 2025-05-24 17:44 | Outpatient (REF) | payer MEDICARE, SELFPAY ==
[2025-05-24 20:43] LABS: Abs Immature Grans 0.01 10^3/uL (0.0-0.06); HCT 37.5 % (36.0-46.0); HGB 11.9 g/dL (11.2-15.7); Immature Grans % 0.1 %; MCH 27.5 pg (27.0-33.0); MCHC 31.7 % (32.0-36.0); MCV 87 fL (80-95); MPV 10.5 fL (8.0-11.0); Platelet Count 336 10^3/uL (130-400); RBC 4.32 10^6/uL (3.93-5.22); RDW 13.0 % (11.7-14.6); RDW-SD 41.1 fL; WBC 8.19 10^3/uL (4.4-10.8)
[2025-05-24 21:09] LABS: ALT 22 U/L (14-59); AST 21 U/L (15-37); Albumin 3.8 g/dL (3.4-5.0); Alkaline Phosphatase 116 U/L (46-116); Anion Gap 10.3 mmol/L (3-11); BUN 19 mg/dL (7-18); Bilirubin, Total 0.3 mg/dL (0.2-1.0); CO2 24.7 mmol/L (21.0-32.0); Calcium 8.3 mg/dL (8.5-10.1); Calculated LDL 151 mg/dL (<100); Chloride 105 mmol/L (98-107); Cholesterol 237 mg/dL (<200); Estimated GFR 80.71 (mL/min/1.73m2); Glucose 107 mg/dL (74-106); HDL Cholesterol 64 mg/dL (>or=50); Potassium 4.2 mmol/L (3.5-5.1); Sodium 140 mmol/L (136-145); Total Protein 7.2 g/dL (6.4-8.2); Triglyceride 113 mg/dL (<150)
[2025-05-24 21:11] LABS: Hemoglobin A1C 5.7 % (<5.7)
== END 2025-05-24 17:45 | disposition home or self-care (01) ==
LOC: NCHCN 17:44
PROVIDERS: PCP Nurse Practitioner
DX: Z00.00 Encounter for general adult medical examination without abnormal findings (principal)
CPT/HCPCS: 80053; 80061; 83036; 85025

== ENCOUNTER 2025-05-29 15:52 | Outpatient (REF) | payer MEDICARE, SELFPAY ==
--- NOTE | 2025-05-29 15:20 | PAPFT_PTH ---
PATIENT: Chichi Bravo LOC: [facility] U#:[id number] AGE/SX: 69/F ROOM: RE05/29/[address]: Sumi Caal MD : 1955 BED: DIS: 05/29/2025 SPEC #: [id number] RECD: 05/29/25 18:20 STATUS: CHAVO REQ #: [id number] STEVEN: 05/29/25 15:[address]: Sumi Caal DEPT: [facility] Cytology RECD BY: Maria R Goldberg ENTERED: 05/29/25 18:20 SP TYPE: PAPFT OTHR DR: Lacey Gomez Tissues: 1 - CX/ENDOCX FOR PAP SMEARS Procedures: PAP THIN PREP/[facility] Screening HPV DNA PROBE Comments: [id number] (HPV 16 & 18/45)
== END 2025-05-29 15:53 | disposition home or self-care (01) ==
LOC: LBN 15:52
PROVIDERS: PCP Nurse Practitioner; Visit Provider Obstetrics & Gynecology
DX: Z12.4 Encounter for screening for malignant neoplasm of cervix (principal)
CPT/HCPCS: 88142; 87624

== ENCOUNTER 2025-06-25 17:18 | Outpatient (REF) | payer MEDICARE, SELFPAY ==
--- NOTE | 2025-06-25 16:40 | SKI_PTH ---
PATIENT: Chichi Bravo LOC: [facility]#:[id number] AGE/SX: 69/F ROOM: RE06/25/[address]: Sumi Caal MD : 1955 BED: DIS: 06/25/2025 SPEC #: [id number] RECD: 06/25/25 17:57 STATUS: CHAVO REQ #: [id number] STEVEN: 06/25/25 16:[address]: Sumi Caal DEPT: Surgical Specimen RECD BY: Maria R Goldberg ENTERED: 06/25/25 18:00 SP TYPE: SKI OTHR DR: Lacey Gomez Tissues: 1 - SKIN BIOPSY(SHAVE/PUNCH) Procedures: SKIN LEVEL 4 Comments: [id number]
== END 2025-06-25 17:19 | disposition home or self-care (01) ==
LOC: NCHCN 17:18
PROVIDERS: PCP Nurse Practitioner; Visit Provider Obstetrics & Gynecology
DX: L98.8 Other specified disorders of the skin and subcutaneous tissue (principal)
CPT/HCPCS: 88305

== ENCOUNTER → 2025-06-29 03:30 | Outpatient (CLI) | payer MEDICARE, SELFPAY ==
--- NOTE | 2025-06-29 15:05 | DI.DEXA_ITS ---
Exam(s) XR DEXA BONE DENSITY W/WO LAMIN EXAM: XR DEXA BONE DENSITY W/WO LAMIN CLINICAL HISTORY: ASYMPTOMATIC MENOPAUSAL STATE Z78.0 SCREENING OSTEOPOROSIS TECHNIQUE: COMPARISON: CR XR DEXA BONE DENSITY W/WO LAMIN from 02/04/2023 XA XR HIP LT IN OR from 08/18/2023 CR XR HIP LT COMPLETE AP PELVIS from 09/02/2023 FINDINGS: Lateral Spine Image: Unremarkable. No compression deformities identified. Right hip: Total T-Score: -1.6 Total Z-Score: -0.2 T- and Z-scores: The findings are consistent with osteopenia. There is no evidence of osteoporosis. Lumbar Spine: Total T-Score: -2.1. This compares to -2.3 on the prior examination. Total Z-Score: -0.1 T- and Z-scores: The findings are consistent with osteopenia. There is no evidence of osteoporosis. IMPRESSION: No evidence of osteoporosis.
--- NOTE | 2025-06-29 15:10 | DI.MAMMO_ITS ---
Exam(s) MAMMO SCREENING EXAM: MAMMO SCREENING CLINICAL HISTORY: SCREENING MAMMO Z12.31. TECHNIQUE: Bilateral full field digital CC and MLO mammographic images were obtained with 3D tomosynthesis and utilizing computer aided detection (CAD). COMPARISON: Prior mammograms were reviewed. FINDINGS: There has been no significant change in the appearance and distribution of the fibroglandular tissue. There are no CAD designations. No new right breast findings. In the left breast there is well-defined noncalcified nodule located 9 cm in from the nipple which measures 7 by 5 mm, unchanged from 2021.. This corresponded to a microcyst seen on prior ultrasound examination of April 2022. There are no new spiculated masses nor malignant-appearing microcalcification groups in either breast. There is no significant architectural distortion nor skin thickening-retraction. IMPRESSION: Stable benign-appearing findings. No radiographic evidence of malignancy. BI-RADS Category 2 - Benign Findings Breast Density - Category B - There are scattered areas of fibroglandular density. Breast density Category C or D implies that the patient has dense breast tissue. Dense breast tissue can make it harder to find cancer on a mammogram. Dense breast tissue is also associated with an increased risk of breast cancer. This information about the result of the mammogram report was provided to the patient to raise their awareness. Use this report when you speak with the patient about their risks for breast cancer, which includes their family history. At that time, you may recommend additional screening tests (Ultrasound or MRI) as these tests may add significant information. A negative radiographic report should not delay biopsy if a dominant or clinically suspicious mass is present. Up to ten percent of cancers are not identified on mammography. A negative report may reinforce clinical impression. Adenosis and dense breasts may obscure an underlying neoplasm. False positive reports average 6 to 10%. Patient will receive a letter notifying them of these results.
== END ==
LOC: DI 03:30
PROVIDERS: PCP Nurse Practitioner; Visit Provider Nurse Practitioner Family
DX: Z13.820 Encounter for screening for osteoporosis (principal); Z78.0 Asymptomatic menopausal state; Z12.31 Encounter for screening mammogram for malignant neoplasm of breast
CPT/HCPCS: 77063; 77067; 77080